=== PATIENT | female | born 1950 | race Caucasian/White ===

== ENCOUNTER 2017-10-19 11:57 | Day surgery (SDC) | payer MEDICARE, SELFPAY ==
[2017-10-14 14:34] VITALS: BMI 20.3
[2017-10-19] VITALS (25 sets, daily range): BP systolic 96–166; BP diastolic 40–90; PULSE 67–110; RESP 12–21; TEMP 36.7–37.4; O2SAT 90–98
--- NOTE | 2017-10-19 14:52 | HMH.PROC ---
[facility] Procedure Note Procedure Note:: Colonoscopy Procedure Report: Colonoscopy with submucosal injection, snare cautery, cold snare polypectomy, APC ablation and epinephrine injection/Endo Clip placement Endoscopist: Dalton Velasquez II, MD Referring physician: Tanika CANTOR Date of Procedure: October 19, 2017 Equipment: Olympus 180 variable stiffness pediatric colonoscope Sedation: Fentanyl 200 mg IV/ Versed 13 mg IV Indication: Mrs. Carbone is a 67-year-old female who is here for follow-up screening/surveillance colonoscopy. She had a colonoscopy 13 or 14 years ago at which time colon polyps were removed. She has had several bouts of diverticulitis over the last 5-10 years. She does note some occasional spotting of blood on the tissue from hemorrhoids. She reports no abdominal pain, weight loss, change in her bowel habits or family history of colon cancer. Procedure: Prior to the procedure, a history and physical exam was performed, and patient's medications and allergies were reviewed. The risks, benefits and alternatives of the sedation and procedure were discussed with the patient. All questions were answered and informed consent was obtained. The patient was brought to the procedure room. Patient identification and proposed procedure were verified by the physician and the nurse. The patient was placed in a left lateral decubitus position and the scope was passed under direct vision. Throughout the procedure, the patient's blood pressure, pulse, and oxygen saturations were monitored continuously. The colonoscopy was accomplished without difficulty. The patient tolerated the procedure well. Findings: On digital rectal examination there was normal rectal tone. There were no external hemorrhoids. The colonoscope was introduced through the anal canal to the rectum and advanced to the cecum. The ileocecal valve and appendiceal orifice were identified. The scope was advanced a short distance into the ileum which appeared grossly normal. The scope was then withdrawn into the colon. There were 3 polyps in the cecum that were 5-8 mm removed via cold snare polypectomy. There was one additional polyp that was 22 mm in the proximal ascending colon that was raised using hetastarch with submucosal injection. After injection, this removed via snare cautery. A larger 28 mm polyp in the mid ascending colon was also raised using submucosal hetastarch and removed via snare cautery. The APC argon was utilized to cauterize the edges and base of the polyp. There was some heme identified on the second polyp and submucosal epinephrine was used to gain hemostasis and then 2 endoclips were utilized. There were 3 additional polyps in the transverse colon. There were extensive diverticulosis in the descending and sigmoid colon. There was a much larger 35 mm pedunculated polyp in the sigmoid colon at 25 cm at an angulated turn. This was also removed in piecemeal resection using snare cautery. Upon retroflexion within the rectum there were grade 1 internal hemorrhoids. Impression: 1. 2 laterally spreading granular ascending colon polyps (22 and 28 mm) 2. 1 large sigmoid pedunculated 35 mm polyp 3. 7 additional diminutive adenomatous polyps 4. Extensive left-sided diverticulosis 5. Grade 1 internal hemorrhoids Plan: I will follow-up the polyp histology and recommend repeat surveillance colonoscopy in 6-12 months based on the endoscopic findings. 3 of these polyps were advanced adenomatous polyps.
--- NOTE | 2017-10-19 14:59 | P.PCN_ITS ---
[facility] Procedure Note Procedure Note:: Colonoscopy Procedure Report: Colonoscopy with submucosal injection, snare cautery, cold snare polypectomy, APC ablation and epinephrine injection/Endo Clip placement Endoscopist: Dalton Velasquez II, MD Referring physician: Tanika CANTOR Date of Procedure: October 19, 2017 Equipment: Olympus 180 variable stiffness pediatric colonoscope Sedation: Fentanyl 200 mg IV/ Versed 13 mg IV Indication: Mrs. Carbone is a 67-year-old female who is here for follow-up screening/surveillance colonoscopy. She had a colonoscopy 13 or 14 years ago at which time colon polyps were removed. She has had several bouts of diverticulitis over the last 5-10 years. She does note some occasional spotting of blood on the tissue from hemorrhoids. She reports no abdominal pain , weight loss, change in her bowel habits or family history of colon cancer. Procedure: Prior to the procedure, a history and physical exam was performed, and patient' s medications and allergies were reviewed. The risks, benefits and alternatives of the sedation and procedure were discussed with the patient. All questions were answered and informed consent was obtained. The patient was brought to the procedure room. Patient identification and proposed procedure were verified by the physician and the nurse. The patient was placed in a left lateral decubitus position and the scope was passed under direct vision. Throughout the procedure, the patient's blood pressure, pulse, and oxygen saturations were monitored continuously. The colonoscopy was accomplished without difficulty. The patient tolerated the procedure well. Findings: On digital rectal examination there was normal rectal tone. There were no external hemorrhoids. The colonoscope was introduced through the anal canal to the rectum and advanced to the cecum. The ileocecal valve and appendiceal orifice were identified. The scope was advanced a short distance into the ileum which appeared grossly normal. The scope was then withdrawn into the colon. There were 3 polyps in the cecum that were 5-8 mm removed via cold snare polypectomy. There was one additional polyp that was 22 mm in the proximal ascending colon that was raised using hetastarch with submucosal injection. After injection, this removed via snare cautery. A larger 28 mm polyp in the mid ascending colon was also raised using submucosal hetastarch and removed via snare cautery. The APC argon was utilized to cauterize the edges and base of the polyp. There was some heme identified on the second polyp and submucosal epinephrine was used to gain hemostasis and then 2 endoclips were utilized. There were 3 additional polyps in the transverse colon. There were extensive diverticulosis in the descending and sigmoid colon. There was a much larger 35 mm pedunculated polyp in the sigmoid colon at 25 cm at an angulated turn. This was also removed in piecemeal resection using snare cautery. Upon retroflexion within the rectum there were grade 1 internal hemorrhoids. Impression: 1. 2 laterally spreading granular ascending colon polyps (22 and 28 mm) 2. 1 large sigmoid pedunculated 35 mm polyp 3. 7 additional diminutive adenomatous polyps 4. Extensive left-sided diverticulosis 5. Grade 1 internal hemorrhoids Plan: I will follow-up the polyp histology and recommend repeat surveillance colonoscopy in 6-12 months based on the endoscopic findings. 3 of these polyps were advanced adenomatous polyps.
== END 2017-10-19 16:10 | disposition home or self-care (01) ==
LOC: OUTP 11:59
PROVIDERS: Family Provider Family Medicine; PCP Family Medicine; Visit Provider Internal Medicine Gastroenterology
PROC: 0DJD8ZZ Inspection of Lower Intestinal Tract, Via Natural or Artificial Opening Endoscopic (ICD-10-PCS; CPT 45378; principal; 2017-10-19 13:00)
DX: Z12.11 Encounter for screening for malignant neoplasm of colon (principal); K63.5 Polyp of colon; D12.0 Benign neoplasm of cecum; D12.3 Benign neoplasm of transverse colon; K57.30 Diverticulosis of large intestine without perforation or abscess without bleeding; K64.0 First degree hemorrhoids
CPT/HCPCS: 45382; 45384; 88305; 99152; 99153; C2618

== ENCOUNTER → 2017-12-17 12:14 | Outpatient (CLI) | payer MEDICARE, SELFPAY ==
--- NOTE | 2017-12-17 12:19 | XR_ITS ---
XR chest 2V HISTORY: ITS.REASON: PNEUMONIA, COPD ORDERING PHYSICIAN: Tanika Quintero PATIENT AGE: 67 years COMPARISON: 12/27/2014 FINDINGS: The cardiomediastinal silhouette and pulmonary vascularity are within normal limits. COPD with old granulomatous disease. Hyperinflation with hyperlucency of the lung apices. No lobar consolidation or collapse.. Degenerative change thoracic spine with mild kyphosis. IMPRESSION: COPD, no change with no acute finding
== END ==
PROVIDERS: PCP Nurse Practitioner Family; Visit Provider Nurse Practitioner Family
DX: J18.1 Lobar pneumonia, unspecified organism (principal); J44.0 Chronic obstructive pulmonary disease with (acute) lower respiratory infection
CPT/HCPCS: 71046

== ENCOUNTER → 2018-01-11 12:19 | Outpatient (CLI) | payer MEDICARE, SELFPAY ==
[2018-01-11 13:20] LABS: Prothrombin Time 31.7 seconds (9.4-11.8)
[2018-01-11 13:37] LABS: Basophils % 0.4 % (0.1-2.0); Eosinophils # 0.1 K/mm3 (0.0-0.4); Eosinophils % 0.7 % (0.1-12.0); Hematocrit 47.8 % (37.0-47.0); Hemoglobin 15.3 g/dL (12.2-16.2); Lymphocytes # 2.1 K/mm3 (0.7-4.5); Lymphocytes % 27.2 K/mm3 (10-50); Mean Corpuscular Hemoglobin 31.6 pg (27.0-31.2); Mean Corpuscular Volume 98.9 fl (81-99); Mean Platelet Volume 8.9 fl (7.4-10.4); Monocytes # 0.3 K/mm3 (0.1-1.0); Monocytes % 4.1 % (1.7-9.3); Neutrophils # 5.3 K/mm3 (1.8-7.8); Neutrophils % 67.6 % (37.0-80.0); Platelet Count 180 K/mm3 (142-424); Red Blood Count 4.83 M/mm3 (4.20-5.40); Red Cell Distribution Width 13.9 % (11.5-17.5); White Blood Count 7.8 K/mm3 (4.8-10.8)
[2018-01-11 13:46] LABS: Activated Partial Thrombo Time 41.9 seconds (23.6-34.0)
[2018-01-11 15:21] LABS: Alanine Aminotransferase 34 U/L (12-78); Albumin Level 3.7 gm/dL (3.4-5.0); Albumin/Globulin Ratio 1.2 (1.1-1.8); Alkaline Phosphatase 129 U/L (46-116); Anion Gap 12.4 mEq/L (5-15); Aspartate Amino Transferase 27 U/L (15-37); Bilirubin,Total 0.4 mg/dL (0.2-1.0); Blood Urea Nitrogen 22 mg/dL (7-18); Calcium 9.3 mg/dL (8.5-10.1); Carbon Dioxide 29 mmol/L (21.0-32.0); Chloride 104 mmol/L (98-107); Creatinine,Serum 0.77 mg/dL (0.55-1.02); Estimated Glomerular Filt Rate 74 ml/min (>60); GFR (African American) 90 ML/MIN (>60); Globulin 3.2 gm/dl (1.3-3.2); Glucose 81 mg/dL (74-106); Potassium 4.4 mmoL/L (3.5-5.1); Sodium 141 mmol/L (136-145); Total Protein,Serum 6.9 gm/dL (6.4-8.2)
== END ==
PROVIDERS: Visit Provider Nurse Practitioner Family
DX: R31.0 Gross hematuria (principal)
CPT/HCPCS: 36415; 80053; 85025; 85610; 85730

== ENCOUNTER → 2018-01-27 08:48 | Outpatient (CLI) | payer MEDICARE, SELFPAY ==
--- NOTE | 2018-01-27 08:56 | CT_ITS ---
CT chest wo con HISTORY: ITS.REASON: RT SIDED RIB PAIN ORDERING PHYSICIAN: Tanika Quintero PATIENT AGE: 67 years Technique: Axial images obtained. Sagittal and coronal reformatted images are also generated and reviewed. All CT scans at the facility use one or more dose reduction, viz: automated exposure control; ma/kV adjustment per patient size (including targeted exams where dose is matched to indication; i.e. head); or iterative reconstruction technique. CONTRAST: None FINDINGS: No mediastinal or hilar mass or adenopathy is evident. Scattered small nodes are present within the mediastinum. There are coronary artery calcifications. There are severe centrilobular emphysematous changes with hyperinflation. Calcified granuloma is present in the right lower lobe. There is thickening of the major fissure inferior to this granuloma with fibrotic changes noted within the right middle lobe. Mild fibrotic changes are present in the right apex. No lobar consolidation or collapse. There is mild diffuse bronchial thickening. No central obstructing lesion. There are calcified nodes within the mediastinum and right hilum. IMPRESSION: 1. Severe emphysema. 2. Old granulomatous disease with fibrotic changes in the right middle lobe. 3. Coronary artery calcifications suggesting coronary artery disease
== END ==
PROVIDERS: Family Provider Family Medicine; PCP Nurse Practitioner Family; Visit Provider Nurse Practitioner Family
DX: R07.89 Other chest pain (principal)
CPT/HCPCS: 71250

== ENCOUNTER → 2018-02-12 12:11 | Outpatient (CLI) | payer MEDICARE, SELFPAY ==
--- NOTE | 2018-02-12 12:24 | XR_ITS ---
XR chest 2V HISTORY: ITS.REASON: COPD ORDERING PHYSICIAN: Tanika Quintero PATIENT AGE: 67 years COMPARISON: 12/17/2017 FINDINGS: The cardiomediastinal silhouette and pulmonary vascularity are within normal limits. Emphysema/COPD with old granulomatous disease. No lobar consolidation or collapse.. Kyphosis of the thoracic spine No acute bony abnormalities. IMPRESSION: No change with no acute finding, COPD/emphysema
[2018-02-12 13:21] LABS: Basophils % 0.2 % (0.1-2.0); Eosinophils % 0.5 % (0.1-12.0); Hematocrit 49.9 % (37.0-47.0); Lymphocytes # 2.1 K/mm3 (0.7-4.5); Lymphocytes % 26.4 K/mm3 (10-50); Mean Corpuscular HGB Conc 32.1 g/dL (31.8-35.4); Mean Corpuscular Hemoglobin 31.7 pg (27.0-31.2); Mean Corpuscular Volume 98.8 fl (81-99); Mean Platelet Volume 9.3 fl (7.4-10.4); Monocytes # 0.3 K/mm3 (0.1-1.0); Monocytes % 3.2 % (1.7-9.3); Neutrophils # 5.4 K/mm3 (1.8-7.8); Neutrophils % 69.7 % (37.0-80.0); Platelet Count 174 K/mm3 (142-424); Red Blood Count 5.05 M/mm3 (4.20-5.40); Red Cell Distribution Width 13.9 % (11.5-17.5); White Blood Count 7.8 K/mm3 (4.8-10.8)
[2018-02-12 14:59] LABS: Alanine Aminotransferase 28 U/L (12-78); Albumin Level 4.1 gm/dL (3.4-5.0); Albumin/Globulin Ratio 1.2 (1.1-1.8); Alkaline Phosphatase 159 U/L (46-116); Aspartate Amino Transferase 29 U/L (15-37); Bilirubin,Total 0.4 mg/dL (0.2-1.0); Blood Urea Nitrogen 12 mg/dL (7-18); Calcium 9.7 mg/dL (8.5-10.1); Carbon Dioxide 31 mmol/L (21.0-32.0); Chloride 104 mmol/L (98-107); Estimated Glomerular Filt Rate 71 ml/min (>60); GFR (African American) 86 ML/MIN (>60); Globulin 3.3 gm/dl (1.3-3.2); Glucose 106 mg/dL (74-106); Sodium 142 mmol/L (136-145); Total Protein,Serum 7.4 gm/dL (6.4-8.2)
== END ==
PROVIDERS: PCP Nurse Practitioner Family; Visit Provider Nurse Practitioner Family
DX: J44.1 Chronic obstructive pulmonary disease with (acute) exacerbation (principal)
CPT/HCPCS: 36415; 71046; 80053; 85025

== ENCOUNTER → 2018-02-24 09:54 | Outpatient (CLI) | payer MEDICARE, SELFPAY ==
[2018-02-24 16:27] VITALS: PULSE 71; PULSE 77
== END ==
PROVIDERS: Family Provider Family Medicine; PCP Nurse Practitioner Family; Visit Provider Nurse Practitioner Family
DX: R06.02 Shortness of breath (principal); Z72.0 Tobacco use
CPT/HCPCS: 94060; 94640

== ENCOUNTER → 2018-03-11 06:42 | Outpatient (CLI) | payer MEDICARE, SELFPAY ==
--- NOTE | 2018-03-11 06:45 | NM_ITS ---
History and Indications: Shortness of breath, fatigue abnormal EKG. Procedure: Patient received a 0.4 mg of Lexiscan, resting heart rate was 67 bpm resting blood pressure 135/56, with Lexiscan maximum heart rate achieved was 96 bpm, which is less than 85% of the maximum predicted heart rate and a blood pressure was 127/76. With Lexiscan patient complained of shortness of breath and stomach discomfort Electrocardiogram: Resting electrocardiogram showed sinus rhythm, with Lexiscan there is less than 1.[address] segment depression noted from the baseline EKG. The EKG portion of the Lexiscan Myoview is nondiagnostic. Cardiac stress and resting SPECT images: Cardiac stress and rest SPECT images were obtained using technetium 99 Myoview 32.8 mCi at stress 10.6 mCi at rest. Gated SPECT further analysis of segmental wall motion and calculation of the ejection fraction also done. Cardiac stress and rest SPECT images show uniform myocardial activity without any segmental perfusion abnormality, computer derived ejection fraction is percent with no obvious regional wall motion abnormality, right ventricle is normal size. Conclusion: 1. The EKG portion of the Lexiscan Myoview is nondiagnostic. 2. No obvious scintigraphic evidence of reversible ischemia seen, computer derived ejection fraction is 66% with no obvious regional wall motion abnormality, right ventricle is normal size and contractility. 3. Normal Lexiscan Myoview study.
--- NOTE | 2018-03-11 06:45 | CA_ITS ---
PROCEDURE: 2-D M-mode and color Doppler study INDICATIONS FOR THE TEST: Chest pain COPDX Heart Murmur Tobacco SmokingX Palpitations Fatigue Syncope Edema Hypertension Diabetes Mellitus Rheumatic Fever SOBXDOEXXObesity Hyperlipidemia Family History HD Additional History PATIENT INFORMATION HEIGHT: 66 WEIGHT:121 GENDER: Female B/P:104/65 2-D/M-MODE INTERPRETATION: 2-D MEASUREMENTS OBSERVED VALUES IN CMS Right Ventricular Dimension (RVDd) 1.9 Interventricular Septum (Thickness)(IVsd) .7 Left Ventricular Internal Dimensions(LVIDd) 4.4 Left Ventricular Posterior Wall (Thickness)(LVPWd) .7 Aortic Root 3.3 Aortic Cusp Separation 2.1 Left Atrial Dimensions (LAD) 2.5 2D 1. Left atrium is qualitatively mildly enlarged, left ventricle is normal size, there is no concentric left ventricular hypertrophy, visually estimated ejection fraction of 55%, with no obvious regional wall motion abnormality. 2. The right atrium and right ventricle are normal size and contractility. 3. The aortic valve is minimally thickened and fibrosed. 4. The mitral and tricuspid valvular grossly normal. 5. The pulmonic valve is poorly visualized. 6. No significant pericardial effusion noted. DOPPLER INTERROGATION: Doppler interrogation of the aortic, mitral and tricuspid valve reveals presence of mild mitral and tricuspid regurgitation, tricuspid regurgitant jet velocity is insufficient for calculation of the right ventricular systolic pressure, grade 1 diastolic dysfunction seen without tissue Doppler evidence of raised left atrial pressure. CONCLUSION: 1. Mildly enlarged left atrium, normal left ventricular size, visually estimated ejection fraction 55% with no obvious regional wall motion abnormality, grade 1 diastolic dysfunction seen without tissue Doppler evidence of raised left atrial pressure. 2. Mild mitral and tricuspid regurgitation 3. No significant pericardial effusion noted
== END ==
PROVIDERS: Family Provider Family Medicine; PCP Nurse Practitioner Family; Visit Provider Internal Medicine
DX: R06.00 Dyspnea, unspecified (principal); R93.8 Abnormal findings on diagnostic imaging of other specified body structures; R94.31 Abnormal electrocardiogram [ECG] [EKG]; J43.9 Emphysema, unspecified
CPT/HCPCS: 78452; 93017; 93306; A9502; J2785

== ENCOUNTER → 2018-03-23 14:52 | Outpatient (CLI) | payer MEDICARE, SELFPAY ==
--- NOTE | 2018-03-23 14:53 | NVE_ITS ---
Venous Exam Indications: 729.5 Pain in limb. IMPRESSIONS 1. There is no evidence of significant Reflux. 2. No evidence of deep or superficial vein thrombosis involving the left lower extremity Left lower extremity venous duplex evaluation. Doppler flow study including spectral analysis, color and carrillo scale imaging. Location: Vascular laboratory. Patient status: Outpatient. Tables: Venous flow and imaging: + +-------+ + Location Overall Flow properties + +-------+ + Left common femoral Patent Normal phasicity; spontaneous; normal augmentation; compressible + +-------+ + Left saphenofemoral junction Patent Compressible + +-------+ + Left profunda femoral Patent Compressible + +-------+ + Left femoral Patent Normal phasicity; spontaneous; normal augmentation; compressible + +-------+ + Left greater saphenous Patent Normal phasicity; spontaneous; normal augmentation; compressible + +-------+ + Left popliteal Patent Normal phasicity; spontaneous; normal augmentation; compressible + +-------+ + Left posterior tibial Patent Compressible + +-------+ + Left peroneal Patent Compressible + +-------+ + Left gastrocnemius Patent Compressible + +-------+ + Left soleal Patent Compressible + +-------+ + (Report amended ) Electronically signed by: Kj Romano [id number]
== END ==
PROVIDERS: Family Provider Family Medicine; PCP Nurse Practitioner Family; Visit Provider Internal Medicine
DX: I82.492 Acute embolism and thrombosis of other specified deep vein of left lower extremity (principal)
CPT/HCPCS: 93971

== ENCOUNTER → 2019-04-06 13:03 | Outpatient (CLI) | payer MEDICARE, SELFPAY ==
--- NOTE | 2019-04-06 13:12 | XR_ITS ---
XR chest 2V HISTORY: ITS.REASON: COPD,EMPHYSEMA,WEIGHT LOSS ORDERING PHYSICIAN: Tanika Quintero APRN PATIENT AGE: 68 years COMPARISON: 09/14/2018 FINDINGS: Normal heart size. COPD. Calcified granuloma right middle lobe. The lungs are otherwise clear. There is kyphosis of the thoracic spine not significant change. IMPRESSION: COPD, no change with no acute finding
== END ==
PROVIDERS: PCP Nurse Practitioner Family; Visit Provider Nurse Practitioner Family
DX: J43.2 Centrilobular emphysema (principal); R63.4 Abnormal weight loss
CPT/HCPCS: 71046

== ENCOUNTER → 2019-10-25 14:06 | Outpatient (POV) | payer MEDICARE, SELFPAY | PROVIDERS: Visit Provider Dermatology | DX: Z00.00 Encounter for general adult medical examination without abnormal findings (principal) ==

== ENCOUNTER → 2019-11-08 14:07 | Outpatient (POV) | payer MEDICARE, SELFPAY | PROVIDERS: Visit Provider Dermatology | DX: Z00.00 Encounter for general adult medical examination without abnormal findings (principal) ==

== ENCOUNTER → 2020-06-26 14:39 | Outpatient (CLI) | payer MEDICARE, SELFPAY ==
--- NOTE | 2020-06-26 14:43 | US_ITS ---
PROCEDURE: US KIDNEY CLINICAL INDICATION: GROSS HEMATURIA COMPARISON: No exams were available for comparison FINDINGS: Right kidney is 9 x 4 cm. No hydronephrosis or renal mass evident. The left kidney is 9 x 5 cm. No hydronephrosis or renal mass. No cortical thinning evident of either kidney. There is a small left renal cyst at 13 mm. IMPRESSION: Small left renal cyst otherwise negative bilateral renal ultrasound Dictated by: Oswaldo Sylvester MD 06/27/2020 15:48 Oswaldo Sylvester MD in [place] 06/27/2020 15:48
--- NOTE | 2020-06-26 14:43 | US_ITS ---
PROCEDURE: US URINARY BLADDER CLINICAL INDICATION: GROSS HEMATURIA COMPARISON: No exams were available for comparison FINDINGS: Full bladder volume is calculated to be 196 mL. There is a small persistent hyperechoic focus seen along the posterior wall of the bladder on the left. This does not demonstrate posterior acoustical shadowing and could represent small polyp. Bilateral ureteral jets are present. There is a small amount of postvoid residual urine estimated to be 52 mL. IMPRESSION: 1. Possible polyp of the posterior wall the urinary bladder on the left at 6 mm. 2. Mild amount of postvoid residual urine of 52 mL Dictated by: Oswaldo Sylvester MD 06/27/2020 15:50 Oswaldo Sylvester MD in [place] 06/27/2020 15:50
== END ==
PROVIDERS: PCP Nurse Practitioner Family; Visit Provider Nurse Practitioner Family
DX: R31.0 Gross hematuria (principal)
CPT/HCPCS: 76770; 76857

== ENCOUNTER → 2020-07-07 12:22 | Outpatient (CLI) | payer MEDICARE, SELFPAY ==
[2020-07-07 14:48] LABS: Coronavirus 19 IgG Antibody Negative (Negative); Coronavirus 19 IgM Antibody Negative (Negative)
== END ==
PROVIDERS: Visit Provider Urology
DX: Z01.89 Encounter for other specified special examinations (principal); R31.0 Gross hematuria
CPT/HCPCS: 36415; 86328

== ENCOUNTER 2020-07-09 08:03 | Day surgery (SDC) | payer MEDICARE, SELFPAY ==
[2020-07-09 08:20] VITALS: BP 115/70; PULSE 80; RESP 18; TEMP 36.7; O2SAT 94; BMI 15.5
[2020-07-09 09:38] VITALS: BP 120/65; PULSE 74; RESP 16; TEMP 36.7; O2SAT 91
[2020-07-09 09:58] VITALS: BP 120/65; PULSE 74; RESP 16; TEMP 36.7; O2SAT 91
--- NOTE | 2020-07-09 10:22 | HMH.OPNOTE ---
Date of procedure: 07/09/20 Pre-op Diagnosis:: Gross hematuria Post-op Diagnosis:: Normal bladder mucosa, urethral stenosis Procedure performed:: Cystourethroscopy Surgeon:: Juan Judge MD Anesthesia: local Estimated blood loss (mL): 0 Clinical Note:: 69-year-old white female with recent gross hematuria. At the time of her hematuria she was noted to be over anticoagulated on her Coumadin. No further hematuria has been noted since this was corrected. CT scan has shown a polypoid lesion in the posterior bladder wall and she presents for cystoscopy. Operative findings:: Normal bladder mucosa, there is no extrinsic compression in the posterior bladder wall which may have been the source for the polypoid finding on the ultrasound. Was some narrowing of the urethra but the flexible scope was able to pass through with minimal difficulty. Operative note:: Patient taken to the operating room after informed consent was obtained. On the stretcher she was placed into the frog-leg position and she was prepped and draped in the standard surgical fashion and 2% lidocaine placed into the urethra. After 5 minutes the flexible cystoscope was introduced into the urethral meatus. It passed proximally but at the bladder neck there was a little bit of resistance. The scope was able to be passed down through into the bladder with minimal resistance. The bladder was examined in a systematic fashion. There was no evidence of mucosal abnormalities, stones, diverticula or trabeculation. A small defect was noted in the posterior bladder pushing inwards guest services representative of some extrinsic compression but no evidence of any mucosal abnormalities at this point. The ureteral orifices in their normal anatomic position with clear reflux of urine. The bladder neck and urethra showed no evidence of any friable tissue. Scope removed patient tolerated the procedure well and there were no complications. We discussed the normal findings today and she is to return on an as-needed basis. I believe that the source of her previous gross hematuria was over anticoagulation. Condition: stable Disposition: same day Specimens:: None Complications:: None
== END 2020-07-09 09:58 | disposition home or self-care (01) ==
LOC: OUTP 08:05
PROVIDERS: PCP Nurse Practitioner Family; Visit Provider Urology
PROC: (CPT 52000; principal; 2020-07-09 09:00)
DX: N35.92 Unspecified urethral stricture, female (principal); Z79.01 Long term (current) use of anticoagulants; Z79.899 Other long term (current) drug therapy; J44.9 Chronic obstructive pulmonary disease, unspecified; I48.91 Unspecified atrial fibrillation; I82.409 Acute embolism and thrombosis of unspecified deep veins of unspecified lower extremity
CPT/HCPCS: 52000

== ENCOUNTER → 2021-01-15 16:06 | Outpatient (CLI) | payer MEDICARE, SELFPAY ==
--- NOTE | 2021-01-15 16:18 | ECG_ITS ---
APPROVED REPORT Exam: Resting ECG HR:67 bpm ECG Measurements Heart Rate 67 AXES CA 130 P 95 QRSd 82 QRS 87 QT 380 T 71 QTc 401 Conclusion Normal sinus rhythm Normal ECG Electronically signed by : Joseph Hartmann, 01/16/2021 17:35:14
--- NOTE | 2021-01-15 16:40 | XR_ITS ---
PROCEDURE: XR CHEST 2V CLINICAL HISTORY: WEIGHT LOSS COMPARISON: CR CXR CHEST(2 VIEWS-NOT PORTABLE) from 12/27/2014 CR CXR2V XR chest 2V from 12/17/[address] chest wo con from 01/27/2018 CR CXR2V XR chest 2V from 02/12/2018 FINDINGS: The cardiomediastinal silhouette and pulmonary vascularity are within normal limits. COPD with hyperinflation and attenuation of the peripheral pulmonary vessels. There is increased density in both lower lobes which may be due to a combination of overlying breast attenuation and skin fold artifact. Infiltrate could have a similar appearance however would be unusual to have symmetric appearance. Calcified granuloma right middle lobe. No acute bony findings. Mild thoracic kyphosis with degenerative changes. No acute bony abnormalities. IMPRESSION: COPD with diffuse hyperexpansion and hyper lucency of the lungs. Probable skin fold and breast artifact overlying the lower lobes which could obscure underlying pulmonary pathology.. No definite acute finding Dictated by: Oswaldo Sylvester MD 01/15/2021 17:17 Oswaldo Sylvester MD in [facility] 01/15/2021 17:17
[2021-01-15 17:06] LABS: Basophils % 0.4 % (0.1-2.0); Eosinophils # 0.1 K/mm3 (0.0-0.4); Eosinophils % 1.3 % (0.1-12.0); Hematocrit 44.4 % (37.0-47.0); Lymphocytes # 1.8 K/mm3 (0.7-4.5); Lymphocytes % 30.7 % (10-50); Mean Corpuscular HGB Conc 31.5 g/dL (31.8-35.4); Mean Corpuscular Hemoglobin 30.3 pg (27.0-31.2); Mean Corpuscular Volume 96.3 fl (81-99); Mean Platelet Volume 9.7 fl (7.4-10.4); Monocytes # 0.3 K/mm3 (0.1-1.0); Monocytes % 4.5 % (1.7-9.3); Neutrophils # 3.8 K/mm3 (1.8-7.8); Neutrophils % 63.1 % (37.0-80.0); Platelet Count 142 K/mm3 (142-424); Red Blood Count 4.61 M/mm3 (4.20-5.40)
[2021-01-15 17:14] LABS: INR 1.55 (0.9-1.1); Prothrombin Time 17.7 seconds (10.1-12.5)
[2021-01-15 17:49] LABS: Chloride 100 mmol/L (98-107); Sodium 140 mmol/L (136-145)
[2021-01-15 17:50] LABS: Potassium 4.9 mmoL/L (3.5-5.1)
[2021-01-15 17:52] LABS: Alanine Aminotransferase 19 U/L (12-78); Albumin Level 4.5 g/dl (3.5-5.0); Albumin/Globulin Ratio 1.6 (1.1-1.8); Alkaline Phosphatase 140 U/L (38-126); Anion Gap 8.9 mEq/L (5-15); Aspartate Amino Transferase 33 U/L (14-36); Bilirubin,Total 0.6 mg/dl (0.2-1.3); Blood Urea Nitrogen 15 mg/dl (7-17); Calcium 10.1 mg/dl (8.4-10.2); Carbon Dioxide 36 mmol/L (22.0-30.0); Estimated Glomerular Filt Rate 82 ml/min (>60); GFR (African American) 100 ML/MIN (>60); Globulin 2.8 g/dL (1.3-3.2); Glucose 98 mg/dl (74-100); Magnesium 2.4 mg/dl (1.6-2.3); Total Protein,Serum 7.3 g/dl (6.3-8.2)
[2021-01-15 17:58] LABS: C-Reactive Protein 5.2 mg/L (0-4)
[2021-01-15 18:09] LABS: Free T4 (Free Thyroxine) 0.91 ng/dl (0.78-2.19)
[2021-01-15 18:24] LABS: Thyroid Stimulating Hormone 3.75 uIU/mL (0.465-4.68)
== END ==
PROVIDERS: PCP Nurse Practitioner Family; Visit Provider Nurse Practitioner Family
DX: R42 Dizziness and giddiness (principal); R63.4 Abnormal weight loss; Z51.81 Encounter for therapeutic drug level monitoring; Z79.01 Long term (current) use of anticoagulants
CPT/HCPCS: 36415; 71046; 80053; 83735; 84439; 84443; 85025; 85610; 86140; 93005

== ENCOUNTER → 2021-01-29 14:51 | Outpatient (CLI) | payer MEDICARE, SELFPAY ==
--- NOTE | 2021-01-29 14:54 | CT_ITS ---
PROCEDURE: CT HEAD/BRAIN WO CON CLINICAL INDICATION: DIZZINESS,VISION CHANGES COMPARISON: No exams were available for comparison TECHNIQUE: Axial images obtained. All CT scans at the facility use one or more dose reduction, viz: automated exposure control, ma/kV adjustment per patient size (including targeted exams where dose is matched to indication, i.e. head), or iterative reconstruction technique. FINDINGS: No midline shift, mass effect, intracranial hemorrhage, hydrocephalus, or extra-axial fluid collection is evident. There is generalized atrophy with hypoattenuation of the periventricular white matter consistent with microangiopathic changes. The calvarium has an unremarkable appearance. No mastoid effusion. No sinus air-fluid level. IMPRESSION: No acute intracranial finding Dictated by: Oswaldo Sylvester MD 01/29/2021 17:01 Oswaldo Sylvester MD in [facility] 01/29/2021 17:01
== END ==
PROVIDERS: PCP Nurse Practitioner Family; Visit Provider Nurse Practitioner Family
DX: R42 Dizziness and giddiness (principal); H53.9 Unspecified visual disturbance
CPT/HCPCS: 70450

== ENCOUNTER 2021-05-02 12:13 | Inpatient (IN) | payer MEDICARE, SELFPAY ==
[2021-05-02] VITALS (9 sets, daily range): BP systolic 105–127; BP diastolic 51–73; PULSE 67–96; RESP 14–18; TEMP 36.4–37.6; O2SAT 90–98; BMI 14.2; BMI 14.0
--- NOTE | 2021-05-02 12:14 | ECG_ITS ---
APPROVED REPORT Exam: Resting ECG HR:81 bpm ECG Measurements Heart Rate 81 AXES WI 122 P 92 QRSd 86 QRS 77 QT 374 T 80 QTc 434 Conclusion Normal sinus rhythm Normal ECG Electronically signed by : Joseph Hartmann MD 05/03/2021 11:38:50
--- NOTE | 2021-05-02 12:32 | XR_ITS ---
PROCEDURE: XR CHEST PORTABLE CLINICAL HISTORY: sob Shortness of breath, shortness of air COMPARISON: CR CXR2V XR chest 2V from 12/17/[address] chest wo con from 01/27/2018 CR CXR2V XR chest 2V from 02/12/2018 CR XR CHEST 2V from 01/15/2021 FINDINGS: The cardiomediastinal silhouette and pulmonary vascularity are within normal limits. Consolidation is present in the left lower lobe consistent with pneumonia with small effusion. Chronic COPD changes with emphysema. There is some patchy density in the right upper lobe which could be due to an area of infiltrate is well. Calcified nodules present in the right lower lobe. No acute bony abnormalities. IMPRESSION: COPD/emphysema with left lower lobe pneumonia with small effusion and possible patchy ground-glass infiltrate in the right upper lobe Dictated by: Oswaldo Sylvester MD 05/02/2021 13:10 Oswaldo Sylvester MD in [facility] 05/02/2021 13:10
[2021-05-02 12:51] LABS: Basophils % 0.2 % (0.1-2.0); Eosinophils % 0.1 % (0.1-12.0); Hematocrit 40.9 % (37.0-47.0); Hemoglobin 12.7 g/dL (12.2-16.2); Lymphocytes % 9.1 % (10-50); Mean Corpuscular Hemoglobin 30.3 pg (27.0-31.2); Mean Corpuscular Volume 97.4 fl (81-99); Mean Platelet Volume 9.7 fl (7.4-10.4); Monocytes # 0.4 K/mm3 (0.1-1.0); Monocytes % 3.9 % (1.7-9.3); Neutrophils # 9.5 K/mm3 (1.8-7.8); Neutrophils % 86.8 % (37.0-80.0); Platelet Count 141 K/mm3 (142-424); Red Blood Count 4.19 M/mm3 (4.20-5.40); Red Cell Distribution Width 13.4 % (11.5-17.5); White Blood Count 10.9 K/mm3 (4.8-10.8)
[2021-05-02 12:52] LABS: MANUAL DIFFERENTIAL MANUAL DIFFERENTIAL (MANUAL DIFF)
[2021-05-02 12:55] LABS: Chloride 102 mmol/L (98-107); Potassium 4.1 mmoL/L (3.5-5.1); Sodium 140 mmol/L (136-145)
[2021-05-02 12:58] LABS: Alanine Aminotransferase 14 U/L (12-78); Albumin Level 3.9 g/dl (3.5-5.0); Albumin/Globulin Ratio 1.3 (1.1-1.8); Alkaline Phosphatase 128 U/L (38-126); Anion Gap 8.1 mEq/L (5-15); Aspartate Amino Transferase 26 U/L (14-36); Bilirubin,Total 0.8 mg/dl (0.2-1.3); Blood Urea Nitrogen 13 mg/dl (7-17); Calcium 9.4 mg/dl (8.4-10.2); Carbon Dioxide 34 mmol/L (22.0-30.0); Creatinine Clearance Estimated 32 mL/min (50-200); Estimated Glomerular Filt Rate 98 ml/min (>60); GFR (African American) 119 ML/MIN (>60); Glucose 117 mg/dl (74-100); Total Protein,Serum 6.9 g/dl (6.3-8.2)
[2021-05-02 13:00] LABS: Prothrombin Time 40.8 seconds (10.1-12.5)
[2021-05-02 13:02] LABS: INR 3.82 (0.9-1.1)
[2021-05-02 13:03] LABS: Lymphocytes % 16 % (10-50); Monocytes % 4 % (2-9); Neutrophils % 80 % (42-76); Platelet Estimate Normal; RBC Morphology Normal; Total Cells Counted 100
[2021-05-02 13:43] LABS: Coronavirus 19, PCR Not Detected (NotDetected); Influenza A, PCR Not Detected (NotDetected); Influenza B, PCR Not Detected (NotDetected)
[2021-05-02 14:15] LABS: Troponin I < 0.01 ng/ml (0.00-0.034)
--- NOTE | 2021-05-02 14:42 | HMH.EDGENADL ---
ED Disposition Clinical Impression: Acute exacerbation of chronic obstructive airways disease PNA (pneumonia) Qualifiers: Pneumonia type: due to unspecified organism Laterality: left Lung location: lower lobe of lung Qualified Code(s): J18.9 - Pneumonia, unspecified organism Disposition: Admitted As Inpatient Condition on Discharge: Good Referrals: Tanika Quintero APRN [Primary Care Provider] - Time of Disposition: 15:02 - Critical Care Critical Care Time: No Attestation: On 05/02/21, the high probability of a clinically significant, sudden or life threatening deterioration of the following system(s) required my full and direct attention, intervention and personal management. The time I documented below is in addition to time spent performing reported procedures but includes the following listed in this critical care notation. Medical Decision Making - Medical Records Medical records reviewed: Yes: I reviewed the patient's medical records. - Danilo Inquiry Pt receiving controlled substance: No Vital Signs: 05/02/21 12:17 Temperature 99.7 F H Temperature Source Oral Pulse Rate [Right] 82 Respiratory Rate 18 Blood Pressure [Right Arm] 110/62 Blood Pressure Mean [Right Arm] 78 02 Sat by Pulse Oximetry 98 Oxygen Delivery Method Room Air - Lab Data Lab results reviewed: Yes: I reviewed the patient's lab results. Lab Results 05/02/21 12:24: POC Glucose Cancelled 05/02/21 12:35: WBC 10.9 H, RBC 4.19 L, Hgb 12.7, Hct 40.9, MCV 97.4, MCH 30.3, MCHC 31.0 L, RDW 13.4, Plt Count 141 L, MPV 9.7, Neut % (Auto) 86.8 H, Lymph % (Auto) 9.1 L, [place] % (Auto) 3.9, Eos % (Auto) 0.1, Baso % (Auto) 0.2, Neut # (Auto) 9.5 H, Lymph # (Auto) 1.0, [place] # (Auto) 0.4, Eos # (Auto) 0.0, Baso # (Auto) 0.0, Total Counted 100, Neutrophils % (Manual) 80 H, Lymphocytes % (Manual) 16, Monocytes % (Manual) 4, Platelet Estimate Normal, RBC Morphology Normal 05/02/21 12:35: Sodium 140, Potassium 4.1, Chloride 102, Carbon Dioxide 34 H, Anion Gap 8.1, BUN 13, Creatinine 0.60, Estimated Creat Clear 32, Estimated GFR 98, Est GFR ( Amer) 119, Glucose 117 H, Calcium 9.4, Total Bilirubin 0.8, AST 26, ALT 14, Alkaline Phosphatase 128 H, Total Protein 6.9, Albumin 3.9, Globulin 3.0, Albumin/Globulin Ratio 1.3 05/02/21 12:35: PT 40.8 H, INR 3.82 H 05/02/21 12:35: Troponin I < 0.01 05/02/21 13:35: SARS-CoV-2 (PCR) Not detected, Influenza A Untype (PCR) Not detected, Influenza Type B (PCR) Not detected Result diagrams: 05/02/21 12:35 05/02/21 12:35 Orders (Tests/Meds): ED MEDICATIONS Generic Name Dose Route Start Last Admin Trade Name Freq PRN Reason Stop Dose Admin Azithromycin 500 mg/ Sodium 250 mls @ 250 mls/hr 05/02/21 14:00 05/02/21 14:17 Chloride IV 05/16/21 13:59 250 mls/hr Q24H ANN MARIE Administration Protocol Ceftriaxone Sodium 1 gm/ 50 mls @ 100 mls/hr 05/02/21 14:00 Sodium Chloride IV 05/16/21 13:59 Q24H ANN MARIE Protocol ORDERS Category Date Time Status Urinalysis and Microscopic Stat Lab 05/02/21 12:19 Ordered - Radiology Data #1 Image(s): Chest Image Reviewed: Yes I reviewed the patient's radiology results Preliminary Findings: Abnormal L sided PNA - ECG Data Tracing #1 I reviewed this ECG and interpreted as documented below: Normal sinus rhythm, 81 bpm, no ST elevation or depression, no ectopy, normal intervals. Tall T waves noted but patient is very thin. ECG initial impression date: 05/02/21 ECG initial impression time: 12:18 Medical Decision Narrative: 70yo F evaluated for shortness of breath. Patient is in no acute distress on initial evaluation but she was pretreated prior to arrival with Solu-Medrol 125 mg IV and a DuoNeb by EMS. Breath sounds are surprisingly clear other than coarseness throughout as would be anticipated with somebody that has a 20-[id number]-fzuj history. Routine blood work is been initiated along with EKG and chest x-ray. Patient's O2 saturati
--- NOTE | 2021-05-02 15:30 | PC.NURSE ---
Attempted to call report to second floor at this without success. Arnaud ALVA was informed that the nurse was assisting a physician with a procedure at this time and will call back
--- NOTE | 2021-05-02 15:54 | HMH.PHAINT ---
MEDICATION RECONCILIATION COMPLETED UTILIZING LIST FROM MD OFFICE AND EXTERNAL PHARMACY FILL HISTORY.
--- NOTE | 2021-05-02 15:55 | HMH.PHAVTE ---
[facility] Pharmacy VTE Monitoring - Patient Demographics Admission date: 05/02/21 Report Date: 05/02/21 Time: 15:55 Allergies/Adverse Reactions: Patient Allergies NSAIDS (Non-Steroidal Anti-Inflamma Allergy (Mild, Verified 07/05/20 13:56) Rash Height: 1.68 m Weight: 39.916 kg Patient Problems: Current Active Problems Acute exacerbation of chronic obstructive airways disease (Acute) PNA (pneumonia) (Acute) - VTE Risk Labs: VTE Related Lab Results Hgb 12.7 g/dL (12.2-16.2) 05/02/21 12:35 Hct 40.9 % (37.0-47.0) 05/02/21 12:35 Plt Count 141 K/mm3 (142-424) L 05/02/21 12:35 PT 40.8 seconds (10.1-12.5) H 05/02/21 12:35 INR 3.82 (0.9-1.1) H 05/02/21 12:35 BUN 13 mg/dl (7-17) 05/02/21 12:35 Creatinine 0.60 mg/dl (0.52-1.04) 05/02/21 12:35 Estimated Creat Clear 32 mL/min (50-200) 05/02/21 12:35 Clinical Trial Participant: No - Prophylaxis VTE Prophylaxis Ordered?: Yes Types of VTE Prophylaxis: TEDS Knee High Location of Applied Device: Bilateral Lower Extremeties
--- NOTE | 2021-05-02 16:10 | HMH.HP ---
*Admission Date: 05/02/21 *Chief complaint: Shortness of breath *History of present illness: 70-year-old female presented to the emergency department with worsening shortness of breath and cough. Patient been seen in the office on April 29 and diagnosed with pneumonia. Patient contacted EMS due to her level of dyspnea. Patient was hypoxic in transport and was given a DuoNeb and given IV Solu-Medrol. Patient is oxygen dependent COPD. Her baseline supplemental oxygen use is 2 L/min via nasal cannula. In route this was increased to 4 L/min. Upon arrival in the ER patient was still hypoxic despite increase in O2 with O2 sat being 87%. Additional work-up confirmed the presence of left lower lobe pneumonia. Patient reports no known fevers but chills at home. Cough is loose and produces sputum of unknown color [facility] History I have reviewed the patient's past medical history: Yes Medical History: Reports:: Arrhythmia, Atrial Fibrillation, Chronic Obstructive Pulmonary Disease (COPD), Deep Vein Thrombosis, Lung Disease, Kidney Stones, Palpitations Denies:: Cancer, Diabetes Mellitus Type 1, Diabetes Mellitus Type 2, Internal Pacemaker, MRSA, Seizures *Have you ever received a pneumonia vaccine?: No *Have you received a flu vaccine this season?: No Other Medical History: Reports: Arthritis Other Surgeries: Yes: No Previous Surgery, Colonoscopy, Hysterectomy-Partial. No: Pacemaker Amputation: No Fractures: No - *Social History Smoking Status: Current every day smoker Tobacco Type: cigarettes # Packs/Day (cigarettes): 1 #Yrs smoked (if former smoker): 50 Alcohol Intake: never Alcohol Intake Frequency:: other Substance Use Type: denies use *Occupational Status:: retired Housing: house Household Members: spouse *Travel in the last 8 weeks: None Family Hx:: No significant family history Review of Systems - Constitutional Reports anorexia, Reports chills, Reports fever(s), Reports lack of energy, Reports weight loss, Denies body ache(s) - Eyes Denies blind spots, Denies blurry vision - ENT Denies bleeding gums, Denies ear discharge - *Cardiovascular Reports chest pain at rest (Described as pleuritic by the patient), Denies chest pain with activity - *Respiratory Reports change in phlegm color, Reports chest congestion, Reports cough, Reports shortness of breath, Reports shortness of breath with activity, Reports pain on inspiration - *Gastrointestinal Denies belching - *Genitourinary Denies painful urination - *Musculoskeletal Denies joint pain - Integumentary/Breasts Denies hair loss - *Neurologic Denies abnormal walking Meds Home Medications Medication Instructions Recorded Confirmed Type escitalopram oxalate 10 mg tablet 10 mg PO HS 10/08/17 05/02/21 History warfarin 5 mg tablet 5 mg PO HS 10/08/17 05/02/21 History zolpidem 5 mg tablet 10 mg PO HS PRN 10/08/17 05/02/21 History Dicyclomine HCl [Bentyl 10mg 20 mg PO QIDP PRN 10/14/17 05/02/21 History capsule] Tizanidine HCl [Zanaflex] 4 mg PO Q8HP PRN 10/14/17 05/02/21 History budesonide-formoterol HFA 160 2 puff INHALATION BID 02/23/18 05/02/21 History mcg-4.5 mcg/actuation aerosol inhaler Albuterol Sulfate [Albuterol 2 puff PO Q4HP PRN 05/02/21 05/02/21 History Sulfate Hfa] Cyproheptadine HCl 4 mg PO BID 05/02/21 05/02/21 History Fluticasone Propionate [Flonase 1 spr NS DAILY 05/02/21 05/02/21 History 50mcg nasal spray 16gm] Ipratropium/Albuterol Sulfate 3 ml IH Q6H 05/02/21 05/02/21 History [Iprat-Albut 0.5-3(2.5) mg/3 ml] Lansoprazole [Prevacid] 30 mg PO DAILY 05/02/21 05/02/21 History hydrOXYzine HCL [Hydroxyzine HCl] 25 mg PO Q4-6H PRN 05/02/21 05/02/21 History polyethylene glycoL 3350 [Miralax 17 gm PO DAILY 05/02/21 05/02/21 History 17gm Packet] Allergies Allergy/AdvReac Type Severity Reaction Status Date / Time NSAIDS (Non-Steroidal Allergy Mild Rash Verified 07/05/20 13:56 Anti-Inflamma Exam Vital signs an
--- NOTE | 2021-05-02 16:30 | PC.NURSE ---
Report received from Edvin ALVA.
--- NOTE | 2021-05-02 16:45 | PC.NURSE ---
Pt arrived to the floor at this time.
--- NOTE | 2021-05-02 17:57 | PC.NURSE ---
Med rec not complete due to patient not knowing her home meds. Family to bring in home meds later.
[2021-05-03] VITALS (9 sets, daily range): BP systolic 91–105; BP diastolic 54–71; PULSE 70–94; RESP 16–20; TEMP 36.9–37.2; O2SAT 83–92; BMI 15.0
--- NOTE | 2021-05-03 03:08 | PC.NURSE ---
A&OX4. TOLERATING 3LNC WELL. UP INDEPENDENTLY IN ROOM. PT GETS VERY OUT OF BREATH WITH AUDIBLE WHEEZING AND PURSED LIP BREATHING WITH ACTIVITY. PT HAS HAD NO C/O PAIN/NA/VO THUS FAR. RESTING COMFORTABLY IN ROOM. VSS WILL CONTINUE TO MONITOR.
[2021-05-03 05:34] LABS: Basophils % 0.1 % (0.1-2.0); Eosinophils # 0.1 K/mm3 (0.0-0.4); Eosinophils % 0.3 % (0.1-12.0); Hematocrit 35.1 % (37.0-47.0); Hemoglobin 11.6 g/dL (12.2-16.2); Lymphocytes # 1.4 K/mm3 (0.7-4.5); Mean Corpuscular HGB Conc 33.2 g/dL (31.8-35.4); Mean Corpuscular Hemoglobin 31.1 pg (27.0-31.2); Mean Corpuscular Volume 93.9 fl (81-99); Mean Platelet Volume 10.2 fl (7.4-10.4); Monocytes # 0.7 K/mm3 (0.1-1.0); Monocytes % 4.1 % (1.7-9.3); Neutrophils # 14.7 K/mm3 (1.8-7.8); Neutrophils % 87.5 % (37.0-80.0); Platelet Count 125 K/mm3 (142-424); Red Blood Count 3.74 M/mm3 (4.20-5.40); Red Cell Distribution Width 14.1 % (11.5-17.5); White Blood Count 16.8 K/mm3 (4.8-10.8)
[2021-05-03 05:38] LABS: Chloride 102 mmol/L (98-107); Sodium 138 mmol/L (136-145)
[2021-05-03 05:39] LABS: Potassium 4.4 mmoL/L (3.5-5.1)
[2021-05-03 05:41] LABS: Blood Urea Nitrogen 17 mg/dl (7-17); Creatinine Clearance Estimated 34 mL/min (50-200); Estimated Glomerular Filt Rate 98 ml/min (>60); GFR (African American) 119 ML/MIN (>60)
[2021-05-03 05:42] LABS: Anion Gap 8.4 mEq/L (5-15); Calcium 9.1 mg/dl (8.4-10.2); Carbon Dioxide 32 mmol/L (22.0-30.0); Glucose 119 mg/dl (74-100)
[2021-05-03 05:43] LABS: MANUAL DIFFERENTIAL MANUAL DIFFERENTIAL (MANUAL DIFF)
[2021-05-03 06:04] LABS: Lymphocytes % 8 % (10-50); Monocytes % 1 % (2-9); Neutrophils % 91 % (42-76); Platelet Estimate Normal; Total Cells Counted 100
[2021-05-03 06:05] LABS: RBC Morphology Normal
--- NOTE | 2021-05-03 06:44 | PC.NURSE ---
pt has cup at bed side for sputum sample. pt cough is dry and non productive at this time.
--- NOTE | 2021-05-03 07:14 | P.CONPHA_ITS ---
[facility] Pharmacy VTE Monitoring - Patient Demographics Admission date: 05/02/21 Report Date: 05/03/21 Time: 07:14 Allergies/Adverse Reactions: Patient Allergies NSAIDS (Non-Steroidal Anti-Inflamma Allergy (Mild, Verified 07/05/20 13:56) Rash Height: 1.68 m Weight: 42.297 kg Patient Problems: Current Active Problems Acute exacerbation of chronic obstructive airways disease (Acute) PNA (pneumonia) (Acute) - VTE Risk Labs: VTE Related Lab Results Hgb 11.6 g/dL (12.2-16.2) L 05/03/21 05:14 Hct 35.1 % (37.0-47.0) L 05/03/21 05:14 Plt Count 125 K/mm3 (142-424) L 05/03/21 05:14 PT 40.8 seconds (10.1-12.5) H 05/02/21 12:35 INR 3.82 (0.9-1.1) H 05/02/21 12:35 BUN 17 mg/dl (7-17) D 05/03/21 05:14 Creatinine 0.60 mg/dl (0.52-1.04) 05/03/21 05:14 Estimated Creat Clear 34 mL/min (50-200) 05/03/21 05:14 Was VTE Risk Assessment Performed: Yes VTE Score: 3 VTE Risk Level: Low Risk Clinical Trial Participant: No - Prophylaxis VTE Prophylaxis Ordered?: Yes Types of VTE Prophylaxis: TEDS Knee High Location of Applied Device: Bilateral Lower Extremeties
--- NOTE | 2021-05-03 07:29 | HMH.ACPN2 ---
Internal Medicine - PN: Subj *Date: 05/03/21 *Time: 07:29 Interval history: Patient has no new complaints. There were no acute events overnight. Exam Vital signs and Labs for Last 24 Hours: Temp Pulse Resp BP Pulse Ox 98.6 F 72 16 93/54 L 90 L 05/03/21 04:00 05/03/21 06:43 05/03/21 04:00 05/03/21 04:00 05/03/21 06:43 Laboratory Results - last 24 hr 05/02/21 12:24: POC Glucose Cancelled 05/02/21 12:35: WBC 10.9 H, RBC 4.19 L, Hgb 12.7, Hct 40.9, MCV 97.4, MCH 30.3, MCHC 31.0 L, RDW 13.4, Plt Count 141 L, MPV 9.7, Neut % (Auto) 86.8 H, Lymph % (Auto) 9.1 L, [place] % (Auto) 3.9, Eos % (Auto) 0.1, Baso % (Auto) 0.2, Neut # (Auto) 9.5 H, Lymph # (Auto) 1.0, [place] # (Auto) 0.4, Eos # (Auto) 0.0, Baso # (Auto) 0.0, Total Counted 100, Neutrophils % (Manual) 80 H, Lymphocytes % (Manual) 16, Monocytes % (Manual) 4, Platelet Estimate Normal, RBC Morphology Normal 05/02/21 12:35: Sodium 140, Potassium 4.1, Chloride 102, Carbon Dioxide 34 H, Anion Gap 8.1, BUN 13, Creatinine 0.60, Estimated Creat Clear 32, Estimated GFR 98, Est GFR ( Amer) 119, Glucose 117 H, Calcium 9.4, Total Bilirubin 0.8, AST 26, ALT 14, Alkaline Phosphatase 128 H, Total Protein 6.9, Albumin 3.9, Globulin 3.0, Albumin/Globulin Ratio 1.3 05/02/21 12:35: PT 40.8 H, INR 3.82 H 05/02/21 12:35: Troponin I < 0.01 05/02/21 13:35: SARS-CoV-2 (PCR) Not detected, Influenza A Untype (PCR) Not detected, Influenza Type B (PCR) Not detected 05/03/21 05:14: WBC 16.8 H D, RBC 3.74 L, Hgb 11.6 L, Hct 35.1 L, MCV 93.9, MCH 31.1, MCHC 33.2, RDW 14.1, Plt Count 125 L, MPV 10.2, Neut % (Auto) 87.5 H, Lymph % (Auto) 8.0 L, [place] % (Auto) 4.1, Eos % (Auto) 0.3, Baso % (Auto) 0.1, Neut # (Auto) 14.7 H, Lymph # (Auto) 1.4, [place] # (Auto) 0.7, Eos # (Auto) 0.1, Baso # (Auto) 0.0, Total Counted 100, Neutrophils % (Manual) 91 H, Lymphocytes % (Manual) 8 L, Monocytes % (Manual) 1 L, Platelet Estimate Normal, RBC Morphology Normal 05/03/21 05:14: Sodium 138, Potassium 4.4, Chloride 102, Carbon Dioxide 32 H, Anion Gap 8.4, BUN 17 D, Creatinine 0.60, Estimated Creat Clear 34, Estimated GFR 98, Est GFR ( Amer) 119, Glucose 119 H, Calcium 9.1 I & O for Last 24 hours: Intake & Output 04/30/21 05/01/21 05/02/21 05/03/21 11:59 11:59 11:59 11:59 Intake Total 240 / 240 Balance 240 / 240 Weight 93 lb 4 oz Narrative: Patient is resting in bed and appears comfortable with no increased work of breathing. Lung have distant breath sounds with the left sided rhonchi. No wheezing heard this morning. Heart has a regular rate and rhythm. Extremities have no edema Assessment and Plan (1) Acute exacerbation of chronic obstructive airways disease Status: Acute Category: Medical Code(s): J44.1 - Chronic obstructive pulmonary disease with (acute) exacerbation (2) PNA (pneumonia) Status: Acute Qualifiers: Pneumonia type: due to unspecified organism Laterality: left Lung location: lower lobe of lung Qualified Code(s): J18.9 - Pneumonia, unspecified organism Category: Medical Code(s): J18.9 - Pneumonia, unspecified organism - Assessment and plan all Dx Assessment and Plan for all problems:: 1. Continue steroids and antibiotics with aerosols.
[2021-05-03 12:42] LABS: Microscopic, Urine URINE MICROSCOPIC (MICROSCOPIC)
[2021-05-03 13:02] LABS: Appearance,Urine CLEAR (Clear); Bilirubin,Urine Negative (Negative); Blood, Urine TRACE-I (Negative); Color,Urine YELLOW (Yellow); Glucose,Urine (UA) Negative (Negative); Ketones,Urine Negative (Negative); Leukocyte Esterase,Urine Negative (Negative); Nitrate,Urine Negative (Negative); Protein,Urine Negative (Negative)
[2021-05-03 13:08] LABS: RBC,Urine Occasional #/hpf (0-3); Squamous Epithelial Cell,Urine Occasional #/hpf (0-5); WBC,Urine Occasional #/hpf (0-3)
--- NOTE | 2021-05-03 17:44 | PC.NURSE ---
Pt has been pleasant and cooperative this shift. A&O X4. No complaints of pain or SOA. Pt is currently receiving O2 via Venti-mask @ 15 LPM/50% O2 with sats. >90%. Venti-mask was applied this AM after an episode of de-saturation. Lung sounds reveal expiratory rhonchi. No edema noted. Skin is C/D/I. Pt ambulates with stand-by assistance to/from the bathroom and throughout the room. Pt also sat up in the recliner for a few hours today. Urine is clear and yellow. No BM thus far today. Appetite is fair and pt eats about half of all meals. 20 G peripheral IV in the LT forearm is patent and SL. VSS. Call light within reach. Will continue to monitor.
[2021-05-04] VITALS (10 sets, daily range): BP systolic 90–112; BP diastolic 51–65; PULSE 62–80; RESP 15–22; TEMP 36.6–37; O2SAT 85–96; BMI 14.9
--- NOTE | 2021-05-04 04:17 | PC.NURSE ---
[address] on continuous pulse ox due to venti mask usage.
--- NOTE | 2021-05-04 04:18 | PC.NURSE ---
patient o2 sats remained low 90s on 50 % venti mask. at 0100 patient o2 sats dropped to 82%, rn notified and upon assessment patient had taken mask off to eat a snack. placed mask back on, sats returned to 90% with a few minutes. after 15 min patient placed on 5 l nc to evaluate tolerance. o2 sats remained 88-90% on 5 l w/a. when patient went to sleep sats increased to 94% and o2 decreased to 4 l nc. sats have remained 93%. patient has had very strong, rattling non productive cough.
--- NOTE | 2021-05-04 04:34 | PC.NURSE ---
sats continue sustaining 93%on 4 l nc, o2 decreased to 3l nc.
--- NOTE | 2021-05-04 06:28 | PC.NURSE ---
patient continues to sat 90-94% on 3l nc, patient states that's what she ears at home. patient has rested well. coughing decreased from beginning of shift
--- NOTE | 2021-05-04 07:55 | P.PN_ITS ---
Internal Medicine - PN: Subj *Date: 05/04/21 *Time: 07:55 Interval history: Patient had to be transition to a Ventimask yesterday during the day but when she was out of bed and into the chair patient was weaned back to nasal cannula and currently is on 3 L/min with O2 sats between 90 and 94%. She notes improvement in her shortness of breath. She has provided a sputum sample. She admits she feels rather weak Exam Vital signs and Labs for Last 24 Hours: Temp Pulse Resp BP Pulse Ox 97.8 F 72 20 94/51 L 96 05/04/21 04:00 05/04/21 07:10 05/04/21 04:00 05/04/21 04:00 05/04/21 07:10 Laboratory Results - last 24 hr 05/03/21 12:30: Urine Color Yellow, Urine Appearance Clear, Urine pH 6.0, Ur Specific [place] 1.020, Urine Protein Negative, Urine Glucose (UA) Negative, Urine Ketones Negative, Urine Blood Trace-i, Urine Nitrate Negative, Urine Bilirubin Negative, Urine Urobilinogen 1.0, Ur Leukocyte Esterase Negative, Urine RBC Occasional, Urine WBC Occasional, Ur Squamous Epith Cells Occasional, Urine Bacteria None I & O for Last 24 hours: Intake & Output 05/01/21 05/02/21 05/03/21 05/04/21 11:59 11:59 11:59 11:59 Intake Total 600 / 600 900 / 900 Balance 600 / 600 900 / 900 Weight 93 lb 4 oz 93 lb Narrative: Patient looks comfortable sitting up in bed. Lung exam: Distant breath sounds, no rhonchi Assessment and Plan (1) Acute exacerbation of chronic obstructive airways disease Status: Acute Category: Medical Code(s): J44.1 - Chronic obstructive pulmonary disease with (acute) exacerbation (2) PNA (pneumonia) Status: Acute Qualifiers: Pneumonia type: due to unspecified organism Laterality: left Lung location: lower lobe of lung Qualified Code(s): J18.9 - Pneumonia, unspecified organism Category: Medical Code(s): J18.9 - Pneumonia, unspecified organism - Assessment and plan all Dx Assessment and Plan for all problems:: 1. Continue IV Rocephin and azithromycin 2. Decrease IV Solu-Medrol 3. Increase activity today, likely discharge tomorrow
--- NOTE | 2021-05-04 17:40 | PC.NURSE ---
Pt is alert and oriented x4 and has been pleasant t/o shift. Pt is on 3 L nc with sats in 90s while sitting down. While ambulating to bathroom/chair, sats drop into high 70s/low 80s but stabilize quickly once sat down and pt remains overall asymptomatic. Pt has not voiced any complaints to staff during this shift. Knee high TEDS applied bilaterally this shift. Call light within reach. Will continue to monitor.
--- NOTE | 2021-05-04 18:30 | PC.NURSE ---
Pt c/o SOA. Sats reading in high 70s. Raised O2 to 4 L nc. Sats now in low 90s, pt tolerating well. Will continue to monitor.
[2021-05-05] VITALS: BP 111/63; PULSE 79; RESP 17; TEMP 36.8; O2SAT 90
[2021-05-05 04:00] VITALS: BP 91/53; PULSE 86; RESP 17; TEMP 36.9; O2SAT 91
--- NOTE | 2021-05-05 04:29 | PC.NURSE ---
shift summary patient has remained on 3 l nc this shift with sats low to mid 90s. patient hesitant to ambulate to restroom due to extreme resp discomfort with task. when getting up to bedside commode patient sats drop done to 79% while on o2 and resp rate in the high 30s. breathing pattern significantly labored. patients pre-activity respiratory status returns with 5 minutes. complained of headache midshift, treated successfully with tylenol.
[2021-05-05 05:00] VITALS: BMI 15.0
[2021-05-05 06:47] VITALS: PULSE 71; PULSE 74; O2SAT 91
[2021-05-05 07:00] LABS: Basophils % 0.1 % (0.1-2.0); Eosinophils % 0.1 % (0.1-12.0); Hematocrit 33.3 % (37.0-47.0); Hemoglobin 11.1 g/dL (12.2-16.2); Lymphocytes # 1.5 K/mm3 (0.7-4.5); Lymphocytes % 14.8 % (10-50); Mean Corpuscular HGB Conc 33.4 g/dL (31.8-35.4); Mean Corpuscular Hemoglobin 31.5 pg (27.0-31.2); Mean Corpuscular Volume 94.3 fl (81-99); Monocytes # 0.7 K/mm3 (0.1-1.0); Monocytes % 7.3 % (1.7-9.3); Neutrophils # 7.8 K/mm3 (1.8-7.8); Neutrophils % 77.7 % (37.0-80.0); Platelet Count 143 K/mm3 (142-424); Red Blood Count 3.53 M/mm3 (4.20-5.40); Red Cell Distribution Width 14.3 % (11.5-17.5)
[2021-05-05 07:52] LABS: Chloride 106 mmol/L (98-107); Potassium 3.8 mmoL/L (3.5-5.1); Sodium 141 mmol/L (136-145)
[2021-05-05 07:55] LABS: Anion Gap 5.8 mEq/L (5-15); Blood Urea Nitrogen 22 mg/dl (7-17); Calcium 8.6 mg/dl (8.4-10.2); Carbon Dioxide 33 mmol/L (22.0-30.0); Creatinine Clearance Estimated 34 mL/min (50-200); Estimated Glomerular Filt Rate 98 ml/min (>60); GFR (African American) 119 ML/MIN (>60); Glucose 84 mg/dl (74-100)
[2021-05-05 08:00] VITALS: BP 97/53; PULSE 67; RESP 18; TEMP 36.7; O2SAT 100
--- NOTE | 2021-05-05 08:04 | HMH.DCSUM ---
General - General Admission date:: 05/02/21 Discharge date: 05/05/21 HPI HPI: 70-year-old female presented to the emergency department with worsening shortness of breath and cough. Patient been seen in the office on April 29 and diagnosed with pneumonia. Patient contacted EMS due to her level of dyspnea. Patient was hypoxic in transport and was given a DuoNeb and given IV Solu-Medrol. Patient is oxygen dependent COPD. Her baseline supplemental oxygen use is 2 L/min via nasal cannula. In route this was increased to 4 L/min. Upon arrival in the ER patient was still hypoxic despite increase in O2 with O2 sat being 87%. Additional work-up confirmed the presence of left lower lobe pneumonia. Patient reports no known fevers but chills at home. Cough is loose and produces sputum of unknown color Hospital Course Hospital Course: Patient was admitted for left lower lobe pneumonia and started on Rocephin and azithromycin. Patient improved gradually with first improvement in chest congestion and then in pleuritic pain and dyspnea. Patient was able to produce a sputum for culture but at the time of dictation culture is still pending. Patient had returned to her baseline oxygen use of 3 L/min via nasal cannula for 48 hours prior to discharge. Patient was also treated for mild COPD exacerbation with IV steroids (Solu-Medrol) and duo nebs. The day prior to discharge she was transitioned to oral prednisone and will continue a course of prednisone as an outpatient. On May 05 patient was discharged home and will follow up in my office this week Objective Vital signs: Temp Pulse Resp BP Pulse Ox 98.5 F 71 17 91/53 L 91 L 05/05/21 04:00 05/05/21 06:47 05/05/21 04:00 05/05/21 04:00 05/05/21 06:47 no acute distress - *Routine Respiratory Exam Present: rales (Faint at left base), distant breath sounds - *Routine Cardiovascular Exam Present: RRR Results Labs on day of discharge: Labs from last 24 hours 05/05/21 05/05/21 06:20 06:20 WBC 10.0 D RBC 3.53 L Hgb 11.1 L Hct 33.3 L MCV 94.3 MCH 31.5 H MCHC 33.4 RDW 14.3 Plt Count 143 MPV 10.0 Neut % (Auto) 77.7 Lymph % (Auto) 14.8 [place] % (Auto) 7.3 Eos % (Auto) 0.1 Baso % (Auto) 0.1 Neut # (Auto) 7.8 Lymph # (Auto) 1.5 [place] # (Auto) 0.7 Eos # (Auto) 0.0 Baso # (Auto) 0.0 Sodium 141 Potassium 3.8 Chloride 106 Carbon Dioxide 33 H Anion Gap 5.8 BUN 22 H D Creatinine 0.60 Estimated Creat Clear 34 Estimated GFR 98 Est GFR ( Amer) 119 Glucose 84 Calcium 8.6 DS: Diagnosis - Discharge Diagnosis (1) PNA (pneumonia) Status: Acute (2) Acute exacerbation of chronic obstructive airways disease Status: Acute Discharge Plan - Patient Discharge Instructions ACTIVITY: Continue current activity DIET: continue same diet Patient Instructions: DI for Chronic Obstructive Pulmonary Disease, DI for Pneumonia -- Adult - Follow up Plan Follow up with: Joseph Cuellar MD [Staff Physician] - 05/08/21 Disposition: Home, Self-Care Condition at discharge:: Improved Home Medications: Home Medications Medication Instructions Recorded Confirmed Type escitalopram oxalate 10 mg tablet 10 mg PO HS 10/08/17 05/02/21 History warfarin 5 mg tablet 5 mg PO HS 10/08/17 05/02/21 History zolpidem 5 mg tablet 10 mg PO HS PRN 10/08/17 05/02/21 History Dicyclomine HCl [Bentyl 10mg 20 mg PO QIDP PRN 10/14/17 05/02/21 History capsule] Tizanidine HCl [Zanaflex] 4 mg PO Q8HP PRN 10/14/17 05/02/21 History budesonide-formoterol HFA 160 2 puff INHALATION BID 02/23/18 05/02/21 History mcg-4.5 mcg/actuation aerosol inhaler Albuterol Sulfate [Albuterol 2 puff PO Q4HP PRN 05/02/21 05/02/21 History Sulfate Hfa] Cyproheptadine HCl 4 mg PO BID 05/02/21 05/02/21 History Fluticasone Propionate [Flonase 1 spr NS DAILY 05/02/21 05/02/21 History 50mcg nasal spray 16gm] Ipra
[2021-05-05 12:00] VITALS: BP 98/55; PULSE 68; RESP 20; TEMP 36.7; O2SAT 99
--- NOTE | 2021-05-06 14:35 | SW/DCPLANNER ---
RECEIVED REFERRAL FOR HOME HEALTH PT SERVICES FOR THIS PATIENT THAT DISCHARGED HOME OVER THE WEEKEND... I MADE CONTACT WITH PATIENT TODAY VIA TELEPHONE AND SHE CHOSE PERSONAL TOUCH OUT OF [employer] THAT SERVICES [facility]...I FAXED REFERRAL AND ASKED FOR SOMEONE TO MAKE CONTACT TO START SERVICES [facility]...MADE PATIENT AWARE TO EXPECT A PHONE CALL...
== END 2021-05-05 12:37 | disposition home or self-care (01) | DRG 194 ==
LOC: ER 15:02 → 2ND 15:15
PROVIDERS: Admitting Provider Family Medicine; Emergency Provider Family Medicine; PCP Nurse Practitioner Family; Visit Provider Family Medicine
DX: J18.9 Pneumonia, unspecified organism (principal); Z68.1 Body mass index [BMI] 19.9 or less, adult; R64 Cachexia; J44.1 Chronic obstructive pulmonary disease with (acute) exacerbation; Z20.822 Contact with and (suspected) exposure to COVID-19; I48.91 Unspecified atrial fibrillation; J44.9 Chronic obstructive pulmonary disease, unspecified; F17.210 Nicotine dependence, cigarettes, uncomplicated; Z79.01 Long term (current) use of anticoagulants; Z99.81 Dependence on supplemental oxygen
CPT/HCPCS: 36415; 71045; 80048; 80053; 81001; 84484; 85007; 85025; 85610; 87070; 87077; 87186; 87205; 93005; 94640; 94760; 94761; 96365; 99203; G0463; J0456; U0003

== ENCOUNTER 2021-09-02 21:12 | Inpatient (IN) | payer MEDICARE, SELFPAY ==
[2021-09-02 21:11] VITALS: BP 121/70; PULSE 79; RESP 22; TEMP 36.9; O2SAT 97; BMI 14.8
--- NOTE | 2021-09-02 21:28 | HMH.EDGENADL ---
ED Disposition Clinical Impression: Right femoral fracture Qualifiers: Encounter type: initial encounter Femur location: intertrochanteric Fracture type: closed Fracture alignment: displaced Qualified Code(s): S72.141A - Displaced intertrochanteric fracture of right femur, initial encounter for closed fracture Disposition: Admitted As Inpatient Condition on Discharge: Fair Time of Disposition: 22:27 - Critical Care Critical Care Time: No Attestation: On 09/02/21, the high probability of a clinically significant, sudden or life threatening deterioration of the following system(s) required my full and direct attention, intervention and personal management. The time I documented below is in addition to time spent performing reported procedures but includes the following listed in this critical care notation. Medical Decision Making - Medical Records Medical records reviewed: Yes: I reviewed the patient's medical records. - Danilo Inquiry Pt receiving controlled substance: No Vital Signs: 09/02/21 21:11 Temperature 98.4 F Temperature Source Oral Pulse Rate [Right] 79 Respiratory Rate 22 Blood Pressure [Right Arm] 121/70 Blood Pressure Mean [Right Arm] 87 Blood Pressure Source [Right Arm] Automatic Cuff 02 Sat by Pulse Oximetry 97 Oxygen Delivery Method Nasal Cannula Oxygen Flow Rate (LPM) 4 - Lab Data Lab Results 09/02/21 21:13: WBC 7.8, RBC 3.87 L, Hgb 12.2, Hct 37.2, MCV 96.3, MCH 31.4 H, MCHC 32.6, RDW 13.9, Plt Count 196, MPV 9.7, Neut % (Auto) 84.7 H, Lymph % (Auto) 10.3, [place] % (Auto) 4.2, Eos % (Auto) 0.4, Baso % (Auto) 0.4, Neut # (Auto) 6.6, Lymph # (Auto) 0.8, [place] # (Auto) 0.3, Eos # (Auto) 0.0, Baso # (Auto) 0.0 09/02/21 21:13: PT 10.5, INR 0.92, APTT 24.4 09/02/21 21:13: Sodium 139, Potassium 4.1, Chloride 101, Carbon Dioxide 37 H, Anion Gap 5.1, BUN 11, Creatinine 0.60, Estimated Creat Clear 33, Estimated GFR 98, Est GFR ( Amer) 119, Glucose 133 H, Calcium 9.0, Total Bilirubin < 0.1 L, AST 27, ALT 16, Alkaline Phosphatase 90, Total Protein 6.4, Albumin 3.9, Globulin 2.5, Albumin/Globulin Ratio 1.6 09/02/21 22:00: SARS-CoV-2 (PCR) Not detected, Influenza A Untype (PCR) Not detected, Influenza Type B (PCR) Not detected Result diagrams: 09/02/21 21:13 09/02/21 21:13 Orders (Tests/Meds): ORDERS Category Date Time Status Covid-19 Nasal PCR ([facility]) Routine Lab 09/02/21 22:00 Stop Req ECG Request by /Alistair Stat Y 09/02/21 21:29 Ordered - Radiology Data #1 Image(s): Hip Image Reviewed: Yes I reviewed the patient's radiology results, Yes I reviewed the patient's radiology image Preliminary Findings: Abnormal IMPRESSION: Intertrochanteric fracture of the right hip with coxa vera deformity. - ECG Data Tracing #1 Sinus rhythm with ventricular rate of 70 bpm. QRS 90, QTc 438. No ST segment elevation. No arrhythmia. Medical Decision Narrative: In summary this is a 71-year-old female presenting to the emergency department with right hip pain after a fall. Patient clinically stable on arrival. Vital signs within normal limits. Oxygen saturation is 95% on her home 4 L. Concern for hip fracture, pelvic fracture, femur fracture, contusion, dislocation. Will obtain x-rays of the right hip and pelvis. Will obtain CBC, CMP, chest x-ray, EKG. Pain is controlled at this time after fentanyl given by EMS. No nausea. Chest x-ray unrevealing. Laboratory results show no significant abnormality of hemoglobin, hematocrit, electrolytes, renal function. X-ray is concerning for a right intertrochanteric femur fracture. Patient neurovascularly intact. Case discussed with orthopedics, Dr. Moe. Patient will be admitted to Dr. Cuellar. N.p.o. at midnight General Adult HPI - General Chief complaint: Fall Stated complaint: Fall, suspected R Hip FX Time Seen by Provider: 09/02/21 21:24 Mode of Arrival: EMS Source of Information: Patient Limitations: No Limitations - History o
--- NOTE | 2021-09-02 21:29 | XR_ITS ---
PROCEDURE INFORMATION: Exam: XR Chest Exam date and time: 09/02/2021 9:29 PM Age: 71 years old Clinical indication: Other: Fall, hip pain; Additional info: Hip FX TECHNIQUE: Imaging protocol: XR of the chest. Views: 1 view. COMPARISON: CR XR CHEST PORTABLE 05/02/2021 12:40 PM FINDINGS: Lungs: Left lower lobe infiltrate and effusion has resolved since comparison. Pleural spaces: Unremarkable. No pleural effusion. No pneumothorax. Heart/Mediastinum: Unremarkable. No cardiomegaly. Bones/joints: Unremarkable. IMPRESSION: 1. Left lower lobe infiltrate and effusion has resolved since comparison. 2. Severe COPD persists.
--- NOTE | 2021-09-02 21:29 | XR_ITS ---
PROCEDURE INFORMATION: Exam: XR Right Hip Exam date and time: 09/02/2021 9:29 PM Age: 71 years old Clinical indication: Hip pain; Right hip; Additional info: Fall, right hip pain TECHNIQUE: Imaging protocol: XR Right hip. Views: 2 or 3 views hip with pelvis when performed. COMPARISON: ABDPELW CT ABD PELVIS W/ CONTRAST 04/03/2017 10:12 AM FINDINGS: Bones/joints: Intertrochanteric fracture of the right hip with coxa vera deformity. Soft tissues: Unremarkable. IMPRESSION: Intertrochanteric fracture of the right hip with coxa vera deformity.
[2021-09-02 21:44] LABS: Basophils % 0.4 % (0.1-2.0); Chloride 101 mmol/L (98-107); Eosinophils % 0.4 % (0.1-12.0); Hematocrit 37.2 % (37.0-47.0); Hemoglobin 12.2 g/dL (12.2-16.2); Lymphocytes # 0.8 K/mm3 (0.7-4.5); Lymphocytes % 10.3 % (10-50); Mean Corpuscular HGB Conc 32.6 g/dL (31.8-35.4); Mean Corpuscular Hemoglobin 31.4 pg (27.0-31.2); Mean Corpuscular Volume 96.3 fl (81-99); Mean Platelet Volume 9.7 fl (7.4-10.4); Monocytes # 0.3 K/mm3 (0.1-1.0); Monocytes % 4.2 % (1.7-9.3); Neutrophils # 6.6 K/mm3 (1.8-7.8); Neutrophils % 84.7 % (37.0-80.0); Platelet Count 196 K/mm3 (142-424); Potassium 4.1 mmoL/L (3.5-5.1); Red Blood Count 3.87 M/mm3 (4.20-5.40); Red Cell Distribution Width 13.9 % (11.5-17.5); Sodium 139 mmol/L (136-145); White Blood Count 7.8 K/mm3 (4.8-10.8)
[2021-09-02 21:47] LABS: Alanine Aminotransferase 16 U/L (12-78); Albumin Level 3.9 g/dl (3.5-5.0); Albumin/Globulin Ratio 1.6 (1.1-1.8); Alkaline Phosphatase 90 U/L (38-126); Anion Gap 5.1 mEq/L (5-15); Aspartate Amino Transferase 27 U/L (14-36); Blood Urea Nitrogen 11 mg/dl (7-17); Carbon Dioxide 37 mmol/L (22.0-30.0); Creatinine Clearance Estimated 33 mL/min (50-200); Estimated Glomerular Filt Rate 98 ml/min (>60); GFR (African American) 119 ML/MIN (>60); Globulin 2.5 g/dL (1.3-3.2); Glucose 133 mg/dl (74-100); Total Protein,Serum 6.4 g/dl (6.3-8.2)
[2021-09-02 21:51] LABS: Bilirubin,Total < 0.1 mg/dl (0.2-1.3)
[2021-09-02 21:52] LABS: Activated Partial Thrombo Time 24.4 seconds (22.8-30.6); INR 0.92 (0.9-1.1); Prothrombin Time 10.5 seconds (10.1-12.5)
--- NOTE | 2021-09-02 21:54 | ECG_ITS ---
APPROVED REPORT Exam: Resting ECG HR:70 bpm ECG Measurements Heart Rate 70 AXES ND 124 P 85 QRSd 90 QRS 77 QT 406 T 79 QTc 438 Conclusion Normal sinus rhythm Normal ECG Electronically signed by : Joseph Hartmann MD 09/03/2021 21:50:38
--- NOTE | 2021-09-02 22:10 | PC.NURSE ---
Called lab, notified that pt will be adx and changing order to rapid covid flu a/b
--- NOTE | 2021-09-02 22:21 | PC.NURSE ---
Dr. Lozoya s/w Dr. Moe
[2021-09-02 22:34] LABS: Coronavirus 19, PCR Not Detected (NotDetected); Influenza A, PCR Not Detected (NotDetected); Influenza B, PCR Not Detected (NotDetected)
[2021-09-03] VITALS (20 sets, daily range): BP systolic 75–131; BP diastolic 35–82; PULSE 68–106; RESP 13–105; TEMP 36.3–43; O2SAT 93–100; BMI 14.8
--- NOTE | 2021-09-03 00:51 | PC.NURSE ---
patient up to floor via stretcher.
--- NOTE | 2021-09-03 03:36 | PC.NURSE ---
Pt a&o x 3, c/o pain to right hip, treated with medication per mar. Ellison cath in place draining clear yellow urine. Expiratory wheezes noted bilaterally, abdomen soft and non-tender. Call hernandez in reach will continue to monitor.
[2021-09-03 06:46] LABS: Basophils % 0.1 % (0.1-2.0); Eosinophils % 0.2 % (0.1-12.0); Hematocrit 34.8 % (37.0-47.0); Hemoglobin 11.2 g/dL (12.2-16.2); Lymphocytes # 1.4 K/mm3 (0.7-4.5); Lymphocytes % 13.1 % (10-50); Mean Corpuscular HGB Conc 32.1 g/dL (31.8-35.4); Mean Corpuscular Hemoglobin 31.7 pg (27.0-31.2); Mean Corpuscular Volume 98.8 fl (81-99); Mean Platelet Volume 9.8 fl (7.4-10.4); Monocytes # 0.6 K/mm3 (0.1-1.0); Monocytes % 5.8 % (1.7-9.3); Neutrophils # 8.5 K/mm3 (1.8-7.8); Neutrophils % 80.7 % (37.0-80.0); Platelet Count 160 K/mm3 (142-424); Red Blood Count 3.52 M/mm3 (4.20-5.40); Red Cell Distribution Width 13.9 % (11.5-17.5); White Blood Count 10.6 K/mm3 (4.8-10.8)
--- NOTE | 2021-09-03 07:09 | HMH.HP ---
*Admission Date: 09/03/21 *Chief complaint: Right hip pain after fall *History of present illness: 71-year-old female with history of severe COPD with chronic respiratory failure on continuous supplemental oxygen at 4 L/min presented to the emergency department after she fell off her couch landing on her right hip. Patient had immediate onset of pain and inability to ambulate. Work-up in the emergency department revealed a right intertrochanteric hip fracture. ER physician spoke with the on-call orthopedist. Patient has been admitted for surgical intervention. At present pain is well controlled. This morning patient denies any recent changes in health. Her dyspnea is stable. She denies chest pain or palpitations. Appetite has been stable. She denies fevers, cough, chills, diarrhea, dysuria, urinary frequency, urgency. [facility] History I have reviewed the patient's past medical history: Yes Medical History: Reports:: Arrhythmia, Cancer (SKIN CANCER ON L WRIST REMOVED), Chronic Obstructive Pulmonary Disease (COPD), Deep Vein Thrombosis, Kidney Stones, Palpitations Denies:: Diabetes Mellitus Type 1, Diabetes Mellitus Type 2, Internal Pacemaker, MRSA, Seizures *Have you ever received a pneumonia vaccine?: Yes *Have you received a flu vaccine this season?: Yes Other Medical History: Reports: Arthritis Other Surgeries: Yes: No Previous Surgery, Colonoscopy, Hysterectomy-Partial, Skin Cancer Excision (L WRIST), Other (CYST REMOVED FROM NECK). No: Pacemaker Amputation: No Fractures: No - *Social History Smoking Status: Current every day smoker Tobacco Type: cigarettes # Packs/Day (cigarettes): 1 #Yrs smoked (if former smoker): 50 Alcohol Intake: never Alcohol Intake Frequency:: other Substance Use Type: denies use *Occupational Status:: retired Housing: house Household Members: spouse *Travel in the last 8 weeks: None Family Hx:: Cancer, Diabetes, Stroke, Mental illness Review of Systems - Review of Systems Review of systems:: pertinent systems reviewed and negative unless documented below - *Neurologic Denies dizziness, Denies headache(s), Denies numbness, Denies tingling Meds Home Medications Medication Instructions Recorded Confirmed Type escitalopram oxalate 10 mg tablet 10 mg PO HS 10/08/17 09/02/21 History zolpidem 5 mg tablet 10 mg PO HS PRN 10/08/17 09/02/21 History Dicyclomine HCl [Bentyl 10mg 20 mg PO QIDP PRN 10/14/17 09/02/21 History capsule] Tizanidine HCl [Zanaflex 4mg 4 mg PO Q8HP PRN 10/14/17 09/02/21 History tab] budesonide-formoterol HFA 160 2 puff INHALATION BID 02/23/18 05/02/21 History mcg-4.5 mcg/actuation aerosol inhaler Albuterol Sulfate [Albuterol 2 puff PO Q4HP PRN 05/02/21 09/02/21 History Sulfate Hfa] Fluticasone Propionate [Flonase 1 spr NS DAILY 05/02/21 09/02/21 History 50mcg nasal spray 16gm] Ipratropium/Albuterol Sulfate 3 ml IH Q6H 05/02/21 09/02/21 History [Iprat-Albut 0.5-3(2.5) mg/3 ml] predniSONE [Prednisone 20mg 20 mg PO DAILY 09/02/21 09/02/21 History Tab] Allergies Allergy/AdvReac Type Severity Reaction Status Date / Time NSAIDS (Non-Steroidal Allergy Mild Rash Verified 07/05/20 13:56 Anti-Inflamma Exam Vital signs and Labs for Last 24 Hours: Temp Pulse Resp BP Pulse Ox 97.9 F 82 17 119/58 L 98 09/03/21 04:00 09/03/21 05:37 09/03/21 04:00 09/03/21 04:00 09/03/21 05:37 Laboratory Results - last 24 hr 09/02/21 21:13: WBC 7.8, RBC 3.87 L, Hgb 12.2, Hct 37.2, MCV 96.3, MCH 31.4 H, MCHC 32.6, RDW 13.9, Plt Count 196, MPV 9.7, Neut % (Auto) 84.7 H, Lymph % (Auto) 10.3, [place] % (Auto) 4.2, Eos % (Auto) 0.4, Baso % (Auto) 0.4, Neut # (Auto) 6.6, Lymph # (Auto) 0.8, [place] # (Auto) 0.3, Eos # (Auto) 0.0, Baso # (Auto) 0.0 09/02/21 21:13: PT 10.5, INR 0.92, APTT 24.4 09/02/21 21:13: Sodium 139, Potassium 4.1, Chloride 101, Carbon Dioxide 37 H, Anion Gap 5.1, BUN 11, Creatinine 0.60, Estimated Creat Clear 33, Estimated GFR 98,
[2021-09-03 07:21] LABS: Anion Gap 2.4 mEq/L (5-15); Blood Urea Nitrogen 12 mg/dl (7-17); Calcium 8.8 mg/dl (8.4-10.2); Carbon Dioxide 39 mmol/L (22.0-30.0); Chloride 102 mmol/L (98-107); Creatinine Clearance Estimated 33 mL/min (50-200); Estimated Glomerular Filt Rate 98 ml/min (>60); GFR (African American) 119 ML/MIN (>60); Glucose 114 mg/dl (74-100); Potassium 4.4 mmoL/L (3.5-5.1); Sodium 139 mmol/L (136-145)
--- NOTE | 2021-09-03 07:25 | P.CONPHA_ITS ---
[facility] VTE Monitoring - Patient Demographics Admission date: 09/03/21 Report Date: 09/03/21 Time: 07:25 Allergies/Adverse Reactions: Patient Allergies NSAIDS (Non-Steroidal Anti-Inflamma Allergy (Mild, Verified 07/05/20 13:56) Rash Height: 1.68 m Weight: 41.73 kg Patient Problems: Current Active Problems Right femoral fracture (Acute) COPD, severe (Acute) Chronic respiratory failure (Acute) - VTE Risk Labs: VTE Related Lab Results Hgb 11.2 g/dL (12.2-16.2) L 09/03/21 05:47 Hct 34.8 % (37.0-47.0) L 09/03/21 05:47 Plt Count 160 K/mm3 (142-424) 09/03/21 05:47 PT 10.5 seconds (10.1-12.5) 09/02/21 21:13 INR 0.92 (0.9-1.1) 09/02/21 21:13 APTT 24.4 seconds (22.8-30.6) 09/02/21 21:13 BUN 12 mg/dl (7-17) 09/03/21 05:47 Creatinine 0.60 mg/dl (0.52-1.04) 09/03/21 05:47 Estimated Creat Clear 33 mL/min (50-200) 09/03/21 05:47 Was VTE Risk Assessment Performed: Yes VTE Score: 4 VTE Risk Level: Low Risk Clinical Trial Participant: No - Prophylaxis VTE Prophylaxis Ordered?: Yes Types of VTE Prophylaxis: TEDS Knee High Location of Applied Device: Refused
--- NOTE | 2021-09-03 09:54 | HMH.PHAINT ---
Verified home medications with Dr. Cuellar office
--- NOTE | 2021-09-03 10:22 | CT_ITS ---
PROCEDURE: CT HIP RT WO CON CLINICAL HISTORY: Right femoral fracture COMPARISON: CT ABDPELW CT ABD PELVIS W/ CONTRAST from 04/03/2017 CR XR CHEST PORTABLE from 09/02/2021 CR XR HIP RT 2-3V W/PELVIS from 09/02/2021 TECHNIQUE: Axial images obtained with sagittal and coronal reformats. All CT scans at the facility use one or more dose reduction, viz: automated exposure control, ma/kV adjustment per patient size (including targeted exams where dose is matched to indication, i.e. head), or iterative reconstruction technique. FINDINGS: There is a comminuted right intertrochanteric fracture with mild impaction of the fracture fragments with medial angulation the distal fracture fragment. There is a prominent butterfly fragment involving the lesser trochanter measuring approximately 6 cm in length and is displaced medially by approximately 1.5 cm. There is diffuse generalized osteopenia. Osteoarthritic changes are present involving the right hip. There is stranding of the fat with increased soft tissue density anterior to the fracture consistent with hemorrhage into the soft tissues. Ellison catheter is present looped in the urinary bladder. IMPRESSION: Comminuted right inter trochanteric hip fracture with displaced lesser trochanter fragment as described above with diffuse generalized osteopenia and hemorrhage within the soft tissues anterior to the fracture Dictated by: Oswaldo Sylvester MD 09/03/2021 11:51 Oswaldo Sylvester MD in [place] 09/03/2021 11:51
--- NOTE | 2021-09-03 12:40 | HMH.ORTHOCON ---
*Admission Date: 09/03/21 <Lauren Mitchell - 09/03/21 12:46> *Reason for consult:: Right hip fracture <Lauren Mitchell - 09/03/21 12:46> *History of present illness: Patient is a 71-year-old female admitted to the inpatient service from the [facility] ER. The patient presented to the emergency department yesterday 09/02/2021 with right hip pain after sustaining a fall at home. She reports that she was lying on her couch, went to reach for her remote control, and fell. She landed on her right side and reports immediate pain in her right hip. She was unable to get up, her assisted her in getting back onto the couch. Today she continues to report right hip pain that is worsened with any attempted movements of the right leg. She denies dizziness, weakness, headache, chest pain, or neck pain. She lives with her and usually walks independently without the use of any cane or walker. She denies loss of consciousness, shortness of breath, chest pain, nausea, vomiting, or distal tingling/numbness. She is a current 1 pack/day smoker. Her past medical history is significant for COPD with chronic respiratory failure; at baseline she wears supplemental oxygen at 4 L/min. She denies any other symptoms or concerns at this time. <Lauren Mitchell - 09/03/21 12:48> [facility] History I have reviewed the patient's past medical history: Yes <Lauren Mitchell - 09/03/21 12:48> Medical History: Reports:: Arrhythmia, Cancer (SKIN CANCER ON L WRIST REMOVED), Chronic Obstructive Pulmonary Disease (COPD), Deep Vein Thrombosis, Lung Disease, Kidney Stones, Palpitations Denies:: Diabetes Mellitus Type 1, Diabetes Mellitus Type 2, Internal Pacemaker, MRSA, Seizures <Lauren Mitchell - 09/03/21 12:48> *Have you ever received a pneumonia vaccine?: Yes <Lauren Mitchell 09/03/21 12:46> *Have you received a flu vaccine this season?: Yes <Lauren Mitchell 09/03/21 12:46> Other Medical History: Reports: Arthritis <Lauren Mitchell - 09/03/21 12:46> Other Surgeries: Yes: No Previous Surgery, Colonoscopy, Hysterectomy-Partial, Skin Cancer Excision (L WRIST), Other (CYST REMOVED FROM NECK). No: Pacemaker <Lauren Mitchell 09/03/21 12:46> Amputation: No <Lauren Mitchell 09/03/21 12:46> Fractures: No <Lauren Mitchell 09/03/21 12:46> - *Social History Smoking Status: Current every day smoker <Lauren Mitchell 09/03/21 12:46> Tobacco Type: cigarettes <Lauren Mitchell 09/03/21 12:46> # Packs/Day (cigarettes): 1 <Lauren Mitchell 09/03/21 12:46> #Yrs smoked (if former smoker): 50 <Lauren Mitchell 09/03/21 12:46> Alcohol Intake: never <Lauren Mitchell 09/03/21 12:46> Alcohol Intake Frequency:: other <Lauren Mitchell 09/03/21 12:46> Substance Use Type: denies use <Lauren Mitchell 09/03/21 12:46> *Occupational Status:: retired <Lauren Mitchell 09/03/21 12:46> Housing: house <Lauren Mitchell 09/03/21 12:46> Household Members: spouse <Lauren Mitchell 09/03/21 12:46> *Travel in the last 8 weeks: None <Lauren Mitchell 09/03/21 12:46> Family Hx:: Cancer, Diabetes, Stroke, Mental illness <Lauern Mitchell 09/03/21 12:46> Review of Systems - Review of Systems Review of systems:: pertinent systems reviewed and negative unless documented below <Lauren Mitchell 09/03/21 12:48> - Constitutional Denies body ache(s), Denies chills, Denies fatigue, Denies fever(s), Denies headache(s), Denies weakness <Lauren Mitchell 09/03/21 12:48> - Eyes Denies blurry vision, Denies change in vision <Lauren Mitchell 09/03/21 12:48> - ENT Denies dizziness, Denies headache(s), Denies neck pain <Lauren Mitchell - 09/03/21 12:48> - *Cardiovascular Denies chest pain, Denies chest pain at rest, Denies chest pain with activity, Denies shortness of breath, Denies shortness of breath with activity, Denies lightheadedness <Lauren Mitchell - 09/03/21 12:48> - *Respiratory Denies chest congestion, Denies cough, De
--- NOTE | 2021-09-03 14:54 | HMH.ANESCL ---
[facility] Anesthesia Checklist - Patient Identification Patient Identification: Arm Band, Verbal (Name & ) - Structural Data Admitted From: Inpatient Planned Operative Procedure/s: Right Hip IM Nail Consent for Planned Operative Procedure(s) Verified: Yes Verified Documents: Surgical Consent - Chart Verification Results Verified: CBC - Additional verifications Anesthesia Reactions: No - Cardiovascular Assessment Heart Sounds: S1 & S2 - Airway Assessment C-Spine Mobility Assessed: Yes TMJ Mobility Assessed: Yes - Neurological Assessment Level of Consciousness: Awake, Alert, Appropriate - Anesthesia Plan Anesthesia Risk discussed: Yes ASA Class: III Anesthesia Type: MAC w/Spinal [facility] History Medical History: Reports:: Arrhythmia, Cancer (SKIN CANCER ON L WRIST REMOVED), Chronic Obstructive Pulmonary Disease (COPD), Deep Vein Thrombosis, Lung Disease, Kidney Stones, Palpitations Denies:: Diabetes Mellitus Type 1, Diabetes Mellitus Type 2, Internal Pacemaker, MRSA, Seizures *Have you ever received a pneumonia vaccine?: Yes *Have you received a flu vaccine this season?: Yes Other Medical History: Reports: Arthritis Anesthesia experience/problems:: none Other Surgeries: Yes: No Previous Surgery, Colonoscopy, Hysterectomy-Partial, Skin Cancer Excision (L WRIST), Other (CYST REMOVED FROM NECK). No: Pacemaker Amputation: No Fractures: No - *Social History Smoking Status: Current every day smoker Tobacco Type: cigarettes # Packs/Day (cigarettes): 1 #Yrs smoked (if former smoker): 50 Alcohol Intake: never Alcohol Intake Frequency:: other Substance Use Type: denies use *Occupational Status:: retired Housing: house Household Members: spouse *Travel in the last 8 weeks: None Family Hx:: Cancer, Diabetes, Stroke, Mental illness
--- NOTE | 2021-09-03 15:00 | XR_ITS ---
PROCEDURE: XR HIP RT 2-3V W/PELVIS CLINICAL INDICATION: C-ARM USED FOR GAMMA NAIL PLACEMENT RIGHT HIP COMPARISON: CR XR HIP RT 2-3V W/PELVIS from 09/02/2021 FINDINGS: Fluoroscopy time: 3.56 minutes. Multiple images submitted with the C-arm demonstrates reduction the intertrochanteric fracture with gamma nail placement with long intramedullary steven along with 2 cerclage wires. There does appear to be good alignment on the submitted images. IMPRESSION: S/p ORIF intertrochanteric fracture with C-arm assistance Dictated by: Oswaldo Sylvester MD 09/04/2021 07:33 Oswaldo Sylvester MD in [place] 09/04/2021 07:33
--- NOTE | 2021-09-03 17:37 | PC.NURSE ---
PT IS OFF THE FLOOR AT THIS TIME FOR SURGERY. PT WAS MEDICATED PER MAR FOR DISCOMFORT BEFORE SURGERY. LUNG SOUNDS CLEAR. ABDOMEN SOFT/NON TENDER. VSS. PALPABLE PULSES. WILL CONTINUE TO MONITOR.
--- NOTE | 2021-09-03 18:59 | SUR.OPER ---
185-updated pt's family at this time
--- NOTE | 2021-09-03 21:20 | P.PN_ITS ---
[facility] Anesthesia Record Part I Intake, IV Amount: 2,300 Estimated blood loss (mL): 300 Urine output (mL): 400 Blood Pressure: 102/52 SaO2: 99 Pulse Rate: 93 Respiratory Rate: 13 Temperature: 97.8 F Patient is:: Drowsy Stable to PACU at:: 21:15
--- NOTE | 2021-09-03 21:44 | PC.NURSE ---
2122-called pt's at this time and updated on pt's status
--- NOTE | 2021-09-03 21:54 | PC.NURSE ---
Patient return from PACU.
--- NOTE | 2021-09-03 21:57 | HMH.OPNOTE ---
Date of procedure: 09/03/21 Pre-op Diagnosis:: Closed, displaced, comminuted intertrochanteric fracture, right femur Post-op Diagnosis:: Same Procedure performed:: 1. Open reduction and cerclage wiring proximal femur, right 2. Cephalo-medullary nailing, right femur Surgeon:: Tuan Moe MD Telephone Clerk Telegraph Office(s):: Lauren Mitchell PA-C VISUAL MERCHANDISING MANAGER:: Other (Munir Avitia) Anesthesia: GETA Estimated blood loss (mL): 300 Clinical Note:: Patient is a 71-year-old female who suffered a closed displaced right intertrochanteric/subtrochanteric fracture following a mechanical fall at home yesterday. Following evaluation in the emergency room where imaging showed a displaced, comminuted and unstable intertrochanteric/subtrochanteric fracture of her right proximal femur, she was admitted for further management. After evaluating the patient, I have discussed the diagnosis and management options in detail including nonsurgical and surgical, with the patient and her . Prior to the injury patient was active and mobile independently. She lives with her and is on long-term home oxygen treatment for severe COPD. After a detailed discussion with the patient a decision was made to fix the fracture internally with a cephalo-medullary nail. I have discussed the procedure, risks and benefits, postoperative recovery and rehabilitation and the expected outcomes. The complications discussed include but are not limited to DVT, PE, infection, bleeding, injury to nerves and blood vessels, screw cut-out/implant failure, loss of fixation, nonunion, malunion/malrotation, osteonecrosis of the femoral head, femoral shaft fracture, painful hardware, heterotopic ossification, stiffness, weakness, incomplete relief of pain, incomplete return of function or motion and the likely need for further surgery in future, and anesthetic/medical complications including heart attack, stroke, transfusion reaction or . The patient and her wished to proceed with the surgical remediation. Consent form was reviewed and signed by me. The limb was appropriately marked and initialed by me. Following appropriate preoperative workup and medical clearance, patient is brought to the operating room for surgery. The surgery is indicated to reduce and stabilize the fracture, relieve pain and improve function. Patient understood the risks, agreed to proceed with surgery, signed the consent form and no guarantees or assurances were given or implied. Operative findings:: Comminuted, displaced and unstable intertrochanteric/subtrochanteric fracture RIGHT proximal femur as noted on the preoperative imaging. The fracture could not be reduced well by closed manipulation and therefore required an open reduction and cerclage wiring. It was then fixed in a stable fashion with a long cephalo-medullary nail. Bone quality is soft/osteoporotic. Operative note:: Following appropriate preoperative workup, patient was brought to the operating room and a general anesthesia was administered by the counterperson. She was then positioned supine on the fracture table and all the bony prominences were appropriately padded. The right foot was secured in the footplate and the footplate was attached to the fracture table. The left leg was placed out of the way in a leg reis. When screened under fluoroscopy, we noticed that the fracture is not appropriately reduced. Therefore, multiple attempts were made to reduce the fracture under fluoroscopic guidance after taking the foot out of the footplate. Given the long spiral, unstable and comminuted fracture configuration, we could not get a satisfactory reduction at this stage. Therefore, we decided to perform an open reduction of the fracture and cerclage wiring to obtain a stable and satisfactory reduction prior to performing the cephalo-medullary nailing. The right hip and right thigh thigh were then prepped and draped in the usual sterile fashion. Administration of prophylactic an
--- NOTE | 2021-09-03 22:03 | PC.NURSE ---
2147-detailed report called to ARTIE Bear 2151-pt transported to 2nd floor room 207 via hospital bed w/cami rails up and left in care of ARTIE Bear with bed locked in lowest position, vss, pt stable
[2021-09-03 23:27] LABS: Hemoglobin 8.3 g/dL (12.2-16.2)
[2021-09-04] VITALS (33 sets, daily range): BP systolic 80–110; BP diastolic 44–64; PULSE 81–101; RESP 16–18; TEMP 36.6–37.9; O2SAT 88–100; BMI 14.5; BMI 14.1
--- NOTE | 2021-09-04 00:12 | PC.NURSE ---
Addendum entered by Caryl Leyva RN 09/04/21 01:10: Pt's pressure will not maintain a systolic >90. Order to transfuse 2 units per . Pt signed blood transfusion consent. Original Note: Pt's initial postop vital signs at 22:00 were 108/61, HR- 105, RR-14, 98.0, O2 93 on 3L NC. 22:30 vitals 75/35, HR- 95, RR- 16, 98.0, 97% on 3L NC, paged at this time. ordered Stat H/H and ordered to nurse educational/development assistant to receive orders for fluids. Paged Munir Santo,HOME CARE NURSE received ordered to give Albumin 50ML x3 over an hour and 500L Bolus of LR. Paged with results of H/H. He stated to order 2 units of blood, but to hold if systolic pressure remains >90 throughout the night. She may need the transfusion in the AM.
--- NOTE | 2021-09-04 04:20 | PC.NURSE ---
Pt's initial postop vital signs at 22:00 were 108/61, HR- 105, RR-14, 98.0, O2 93 on 3L NC. 22:30 vitals 75/35, HR- 95, RR- 16, 98.0, 97% on 3L NC, paged at this time. ordered Stat H/H and stated to page nurse time study technician to receive orders for fluids. Paged Munir Santo CRNA received ordered to give Albumin 50ML x3 over an hour and 500L Bolus of LR. 23:00-Paged with results of H/H. He stated to order 2 units of blood, but to hold blood transfusion if systolic pressure remains > 90 throughout the night. 00:45- pt's pressure was not maintaining, B/P was 86/45. 2 units of blood was ordered per . Started 1 unit of blood at 02:35 per TAR. Pt is tolerating blood transfusion well.
[2021-09-04 06:53] LABS: Basophils % 0.1 % (0.1-2.0); Eosinophils % 0.1 % (0.1-12.0); Hematocrit 25.4 % (37.0-47.0); Hemoglobin 8.1 g/dL (12.2-16.2); Lymphocytes % 10.3 % (10-50); Mean Corpuscular HGB Conc 31.8 g/dL (31.8-35.4); Mean Corpuscular Hemoglobin 31.2 pg (27.0-31.2); Mean Platelet Volume 9.9 fl (7.4-10.4); Monocytes # 0.6 K/mm3 (0.1-1.0); Monocytes % 6.2 % (1.7-9.3); Neutrophils % 83.3 % (37.0-80.0); Platelet Count 77 K/mm3 (142-424); Red Blood Count 2.59 M/mm3 (4.20-5.40); Red Cell Distribution Width 14.5 % (11.5-17.5); White Blood Count 9.7 K/mm3 (4.8-10.8)
--- NOTE | 2021-09-04 07:15 | P.PN_ITS ---
Internal Medicine - PN: Subj *Date: 09/04/21 *Time: 07:15 Interval history: Patient underwent successful open reduction and cerclage wiring of the right proximal femur with cephalomedullary nailing yesterday. Postoperatively patient has been hypotensive and was given 2 units of blood as part of her treatment for hypertension. Hemoglobin did drop to 8.1. Patient is in process of finishing her second unit of blood. Patient denies shortness of breath although has developed a bronchitic cough. Her pain is improved since surgery Exam Vital signs and Labs for Last 24 Hours: Temp Pulse Resp BP Pulse Ox 98.4 F 85 16 92/56 L 98 09/04/21 06:40 09/04/21 06:40 09/04/21 06:40 09/04/21 06:40 09/04/21 06:40 Laboratory Results - last 24 hr 09/03/21 05:47: Sodium 139, Potassium 4.4, Chloride 102, Carbon Dioxide 39 H, Anion Gap 2.4 L, BUN 12, Creatinine 0.60, Estimated Creat Clear 33, Estimated GFR 98, Est GFR ( Amer) 119, Glucose 114 H, Calcium 8.8 09/03/21 12:17: Blood Type A Positive, Antibody Screen Negative, Crossmatch (AHG) See Detail 09/03/21 23:00: Hgb 8.3 L D, Hct 26.0 L 09/04/21 00:00: Blood Type Confirm A Positive 09/04/21 06:24: WBC 9.7, RBC 2.59 L D, Hgb 8.1 L, Hct 25.4 L, MCV 98.0, MCH 31.2, MCHC 31.8, RDW 14.5, Plt Count 77 L D, MPV 9.9, Neut % (Auto) 83.3 H, Lymph % (Auto) 10.3, [place] % (Auto) 6.2, Eos % (Auto) 0.1, Baso % (Auto) 0.1, Neut # (Auto) 8.0 H, Lymph # (Auto) 1.0, [place] # (Auto) 0.6, Eos # (Auto) 0.0, Baso # (Auto) 0.0 I & O for Last 24 hours: Intake & Output 09/01/21 09/02/21 09/03/21 09/04/21 11:59 11:59 11:59 11:59 Intake Total 2550 / 2550 Output Total 0 / 0 800 / 800 Balance 0 / 0 1750 / 1750 Weight 91 lb 15.982 oz 90 lb 3.2 oz Narrative: Patient appears comfortable with no increased work of breathing. Oropharynx is moist. Lungs are distant with right-sided wheezes. Heart has a regular rate and rhythm. Abdomen is soft. Lower extremities have no edema. Right lower extremity is neurovascularly intact. Assessment and Plan (1) Right femoral fracture Status: Acute Qualifiers: Qualified Code(s): S72.141A - Displaced intertrochanteric fracture of right femur, initial encounter for closed fracture Category: Medical Code(s): S72.91XA - Unspecified fracture of right femur, initial encounter for closed fracture (2) COPD, severe Status: Acute Category: Medical Code(s): J44.9 - Chronic obstructive pulmonary disease, unspecified (3) Chronic respiratory failure Status: Acute Category: Medical Code(s): J96.10 - Chronic respiratory failure, unspecified whether with hypoxia or hypercapnia - Assessment and plan all Dx Assessment and Plan for all problems:: 1. Patient will finish her 2 units of packed red blood cells for her acute blood loss anemia and have a 1 hour posttransfusion H&H 2. Continue IV fluids with as needed boluses 3. Patient will be ordered duo nebs for wheezing 4. Portable chest x-ray due to increased cough 5. Continue incentive spirometry use 6. Repeat CBC this afternoon at 2 PM
--- NOTE | 2021-09-04 07:30 | XR_ITS ---
PROCEDURE: XR CHEST PORTABLE CLINICAL HISTORY: cough COMPARISON: CT CHESTWO CT chest wo con from 01/27/2018 CR XR CHEST 2V from 01/15/2021 CR XR CHEST PORTABLE from 05/02/2021 CR XR CHEST PORTABLE from 09/02/2021 FINDINGS: The cardiomediastinal silhouette and pulmonary vascularity are within normal limits. There is bilateral skin fold artifact. Calcified cluster of nodules in the right lower lobe unchanged. No lobar consolidation or collapse. Carotid artery calcifications are noted. COPD changes No acute bony abnormalities. IMPRESSION: No acute findings. Dictated by: Oswaldo Sylvester MD 09/04/2021 07:56 Oswaldo Sylvester MD in [facility] 09/04/2021 07:56
[2021-09-04 09:04] LABS: Alanine Aminotransferase 17 U/L (12-78); Albumin Level 3.1 g/dl (3.5-5.0); Albumin/Globulin Ratio 1.6 (1.1-1.8); Alkaline Phosphatase 44 U/L (38-126); Anion Gap 4.1 mEq/L (5-15); Aspartate Amino Transferase 33 U/L (14-36); Bilirubin,Total 0.1 mg/dl (0.2-1.3); Blood Urea Nitrogen 12 mg/dl (7-17); Calcium 8.4 mg/dl (8.4-10.2); Carbon Dioxide 34 mmol/L (22.0-30.0); Chloride 104 mmol/L (98-107); Creatinine Clearance Estimated 32 mL/min (50-200); Estimated Glomerular Filt Rate 121 ml/min (>60); GFR (African American) 146 ML/MIN (>60); Globulin 1.9 g/dL (1.3-3.2); Glucose 128 mg/dl (74-100); Potassium 4.1 mmoL/L (3.5-5.1); Sodium 138 mmol/L (136-145)
--- NOTE | 2021-09-04 09:09 | HMH.PTEV ---
Physical Therapy Evaluation Rehab PT IP Evaluation Start: 09/03/21 21:42 Freq: ONCE Status: Active Protocol: Document 09/04/21 08:53 LESVIA (Rec: 09/04/21 09:08 LESVIA [id number]) Subjective/History History History This is the initial evaluation for Felicita ortiz. Pt is a 71 y/o female admitted to [facility] for a fractures R hip after a fall at home. Pt has history of severe COPD with chronic respiratory failure on continuous supplemental oxygen . - note done by Dorina Harrison, SPT Subjective Subjective Pt states she lives in a trailer with her who she reports to have good health. Pt states her wil does most of the house work and takes care of her. Pt states she uses supplemental O2 at home but she does not use any AD to ambulate with. Pt states she does have about 6 steps into her trailor. Pt states one other fall at home that occured due to a trip. Rehab PT IP Eval Objective Appearance Patient Behavior Appropriate,Cooperative Patient Orientation Place,Name,Birthday,Year Difficulty following instructions none Speech Pattern Clear,Appropriate,Coherent Ambulation Patient Able to Ambulate Yes Ambulation Observation IP General Gait Pattern Observation Narrow Based Gait,Shuffling Step Ambulation Distance (feet) 5 Ambulation Assistive Device None Ambulation Ability Maximum x 2 (75% assist) Balance Ability to Arise Able, uses arms to help Sitting Balance Steady, safe Standing Balance Unsteady Dynamic Sitting Balance Ability Fair Dynamic Standing Balance Ability Fair Transfers Bed Transfer Ability Maximum x 2 (75% assist) Chair Transfer Ability Moderate x 2 (50% assist) Sit to Stand Bed Transfer Ability Moderate x 2 (50% assist) Rehab PT IP prob,goals,plan Problems Date of Evaluation: 09/04/21 PT IP Problems Bed Mobility,Transfers,Gait, Balance,Self care,Safety Rehab Potential Rehab Potential Fair Equipment Needs Assistive Devices Rolling / Wheeled Walker Plan PT Intervention Plan
[2021-09-04 09:28] LABS: Hematocrit 28.8 % (37.0-47.0)
[2021-09-04 09:29] LABS: Hemoglobin 9.5 g/dL (12.2-16.2)
--- NOTE | 2021-09-04 09:39 | HMH.OTEV ---
OT Inpatient Evaluation Rehab OT IP Evaluation Start: 09/03/21 21:42 Freq: ONCE Status: Complete Protocol: Document 09/04/21 09:32 STONE (Rec: 09/04/21 09:39 [facility] [id number]) Rehab OT IP Assessment Subjective History Pt oriented x 3 on arrival. Pt was admitted on 09/02/21 due to right hip fx. Pt was laying on couch and fell off landing on right hip. The following information was copied per ER documentation: 71-year-old female presenting to the emergency department with right hip pain after a fall. She was lying on her couch around 1 hour prior to arrival, went to reach for the remote control and fell off of the couch. She landed on her right side. Had immediate pain in her right hip and proximal femur. Pain is described as intense and stabbing. She was unable to get up, helped her back onto the couch. She continues to have severe pain in the right hip. Does not radiate to the knee or the back. No numbness, weakness, tingling in her foot. No other injuries obtained in the fall. Specifically, no head injury, chest pain, abdominal pain, pain in her other extremities. She has a history of tobacco use disorder and COPD, chronic hypoxic respiratory failure. Uses 4 L by nasal cannula. Previously was on blood thinning medicine, does not take blood thinners at this time. She was given 100 mcg of fentanyl IV by EMS. Pt has a past medical history of Arrhythmia, Cancer (SKIN CANCER ON L WRIST REMOVED), Chronic Obstructive Pulmonary Disease (COPD), Deep Vein
--- NOTE | 2021-09-04 10:52 | HMH.ORTHPN ---
Subjective Date: 09/04/21 <Lauren Mitchell - 09/04/21 10:53> Time: 08:45 <Lauren Mitchell - 09/04/21 10:53> Principal diagnosis: Right intertrochanteric femur fracture <Lauren Mitchell - 09/04/21 10:53> Interval history: Patient is a 71-year-old female who underwent an uneventful right open reduction, cerclage wiring and cephalomedullary nailing of the right femur yesterday 09/03/2021. Today she is postop day #1. This morning she is sitting up in a chair at the bedside. She reports right hip pain but states that it is well controlled with pain medication. She has been up and ambulated with the assistance of physical therapy and states that this went well. She is eating and drinking well and denies any nausea or vomiting. No history of fevers, chills, rigors, or distal tingling/numbness. She denies chest pain, shortness of breath, or any other symptoms or concerns at this time. <Lauren Mitchell - 09/04/21 10:57> PN: Obj Ex Vital signs: Temp Pulse Resp BP Pulse Ox 98.7 F 94 H 18 88/47 L 95 09/04/21 15:36 09/04/21 15:36 09/04/21 15:36 09/04/21 15:36 09/04/21 15:36 <Tuan Moe - 09/04/21 17:03> Temp Pulse Resp BP Pulse Ox 98.6 F 90 17 81/44 L 97 09/04/21 08:00 09/04/21 08:00 09/04/21 08:00 09/04/21 08:00 09/04/21 08:00 <Lauren Mitchell - 09/04/21 10:53> - Constitutional no acute distress, thin <Lauren Mitchell - 09/04/21 11:03> - Routine Respiratory Exam Absent: accessory muscle use, respiratory distress <Lauren Mitchell - 09/04/21 11:03> Comments: Symmetric chest movement, able to speak in complete sentences <Lauren Mitchell - 09/04/21 11:03> - Routine Cardiovascular Exam Present: RRR. Absent: JVD <PaulaLauren 09/04/21 11:03> Comments: Normal peripheral pulses <PaulaLauren 09/04/21 11:03> - Routine Abdominal Exam Present: soft. Absent: tenderness <Mitchell,Lauren 09/04/21 11:03> - Routine Extremities Exam Present: pulses intact, normal capillary refill. Absent: calf tenderness <Lauren Mitchell 09/04/21 11:03> Comments: Upon examination of the lower extremities: The limb lengths are equal. Dressings over the right hip are clean, dry, and intact. No evidence of drainage or bleeding noted. Attempted movements of the right hip/leg are painful as to be expected at this stage. Thigh and calf are soft and nontender; Homans' sign is negative. No clinical evidence of DVT noted. Posterior tibial pulse 2+, dorsalis pedis pulse 1+; capillary refill is brisk. Sensation to light touch is grossly intact throughout. Patient is actively mobilizing the knee, ankle, and toes. <Lauren Mitchell 09/04/21 11:03> - Routine Skin Exam Present: intact, normal turgor. Absent: erythema, lesions, jaundice <Lauren Mitchell 09/04/21 11:03> - Routine Neurological Exam Present: alert, oriented X3, moving all extremities, normal tone. Absent: sensory deficit, motor deficit <Lauren Mitchell 09/04/21 11:03> - Urinary Catheter Management Ellison Cath placed during this visit: no <Tuan Moe - 09/04/21 17:03> no <Lauren Mitchell 09/04/21 11:44> Urethral indwelling: Yes <Lauren Mitchell 09/04/21 11:03> Progress Note: A&P (1) Right femoral fracture Status: Acute (2) COPD, severe Status: Acute (3) Chronic respiratory failure Status: Acute <Tuan Moe 09/04/21 17:03> (1) Right femoral fracture Status: Acute (2) COPD, severe Status: Acute (3) Chronic respiratory failure Status: Acute <Lauren Mitchell 09/04/21 11:44> Assessment and Plan for All Diagnoses:: Patient had a markedly comminuted proximal femoral fracture requiring open reduction prior to cephalomedullary nailing. Given the situation, the intraoperative blood loss was more than usual for cephalomedullary nailing. There may still be some continued oozing into the soft tissue. Patient dropped h
--- NOTE | 2021-09-04 12:18 | SW/DCPLANNER ---
Addendum entered by Delphine Bhatia 09/06/21 10:50: PATIENT IS DISCHARGING TO [facility].. DR GARVIN DOES NOT GO TO [facility] AND DR SHIPLEY'S PRACTICE WILL BE FOLLOWING [facility] DURING STAY... Original Note: SPOKE WITH PATIENT REGARDING DISCHARGE PLANNING FOR THIS PATIENT.. PATIENT STATED SHE WAS ASLEEP ON THE COUCH AND ROLLED OFF THE COUCH AND HIT THE FLOOR.. SHE STATED IT DID NOT HAVE CARPET AND WAS [place] THAT RESULTED A RIGHT HIP FRACTURE. SHE IS FROM [facility] AND WISHES TO GO TO THE SKILLED FACILITY THERE FOR HER REHAB..I HAVE SENT THE REFERRAL AND WAITING TO HEAR BACK TO WHETHER THEY HAVE A SKILLED BED FOR HER, IF SO SHE MAY DISCHARGE THERE IN THE NEXT DAY OR SO...
[2021-09-04 13:55] LABS: Basophils % 0.2 % (0.1-2.0); Eosinophils % 0.1 % (0.1-12.0); Lymphocytes # 1.4 K/mm3 (0.7-4.5); Lymphocytes % 14.6 % (10-50); Mean Corpuscular HGB Conc 33.3 g/dL (31.8-35.4); Mean Corpuscular Hemoglobin 31.9 pg (27.0-31.2); Mean Corpuscular Volume 95.8 fl (81-99); Mean Platelet Volume 9.5 fl (7.4-10.4); Monocytes # 0.7 K/mm3 (0.1-1.0); Neutrophils # 7.7 K/mm3 (1.8-7.8); Neutrophils % 78.1 % (37.0-80.0); Platelet Count 79 K/mm3 (142-424); Red Blood Count 2.82 M/mm3 (4.20-5.40); Red Cell Distribution Width 14.6 % (11.5-17.5); White Blood Count 9.9 K/mm3 (4.8-10.8)
--- NOTE | 2021-09-04 18:14 | PC.NURSE ---
PT HAS RECEIVED MULTIPLE FLUID BOLUSES THIS SHIFT R/T HER HYPOTENSION. HER BP WILL RECOVER AFTER RECEIVING FLUID BOLUS BUT WILL SLOWLY DROP BACK DOWN WITH SYSTOLIC IN THE 80'S. HER TEMPERATURE WAS NOTED TO BE 100.2 THIS AFTERNOON. SHE WAS GIVEN TYLENOL PER NOV. SHE HAS USED INCENTIVE SPIROMETER THIS SHIFT. WAS ABLE TO PARTICIPATE WITH THERAPY AND SPENT AROUND 5 HOURS UP TO CHAIR. SHE HAS TOLERATED DIET WELL. DID REQUEST PAIN MEDICATION X1 THIS MORNING BUT HAS DENIED PAIN SINCE. DSG REMAINS IN PLACE AND IS C/D/I.
[2021-09-05] VITALS (11 sets, daily range): BP systolic 91–116; BP diastolic 53–63; PULSE 74–100; RESP 14–22; TEMP 36.6–38.2; O2SAT 88–97; BMI 17.8
--- NOTE | 2021-09-05 04:45 | PC.NURSE ---
pt complained of pain and medicated twice with morphine as pt refused po norco that was ordered, pt was educated on norco and agreed to try and given at 0300 with relief of pain, pt up to bsc x1 with assist x2, pt requested use of fracture fallon afterwards, pt with low grade temp through the night and treated with tylenol, dressing CDI to right hip, pt did not bring home meds with her to hospital and states that family will bring in today. b/p remain on the low side but stable through the night
--- NOTE | 2021-09-05 07:20 | HMH.ACPN2 ---
Internal Medicine - PN: Subj *Date: 09/05/21 *Time: 07:20 Interval history: Patient denies pain this morning. She did receive both intravenous and oral pain medications overnight. She had her PT eval yesterday. Patient's blood pressure was low yesterday requiring multiple fluid boluses as well as increase maintenance fluid rate. She remained asymptomatic from any hypotension. This morning she has no new complaints. Her cough is better. Exam Vital signs and Labs for Last 24 Hours: Temp Pulse Resp BP Pulse Ox 99.2 F 83 18 94/57 L 97 09/05/21 04:00 09/05/21 06:31 09/05/21 04:00 09/05/21 04:00 09/05/21 06:31 Laboratory Results - last 24 hr 09/03/21 12:17: Crossmatch (AHG) See Detail 09/04/21 06:24: Sodium 138, Potassium 4.1, Chloride 104, Carbon Dioxide 34 H, Anion Gap 4.1 L, BUN 12, Creatinine 0.50 L, Estimated Creat Clear 32, Estimated GFR 121, Est GFR ( Amer) 146 D, Glucose 128 H, Calcium 8.4, Total Bilirubin 0.1 L, AST 33, ALT 17, Alkaline Phosphatase 44, Total Protein 5.0 L, Albumin 3.1 L D, Globulin 1.9, Albumin/Globulin Ratio 1.6 09/04/21 09:10: Hgb 9.5 L D, Hct 28.8 L 09/04/21 13:45: WBC 9.9, RBC 2.82 L, Hgb 9.0 L, Hct 27.0 L, MCV 95.8, MCH 31.9 H, MCHC 33.3, RDW 14.6, Plt Count 79 L, MPV 9.5, Neut % (Auto) 78.1, Lymph % (Auto) 14.6, [place] % (Auto) 7.0, Eos % (Auto) 0.1, Baso % (Auto) 0.2, Neut # (Auto) 7.7, Lymph # (Auto) 1.4, [place] # (Auto) 0.7, Eos # (Auto) 0.0, Baso # (Auto) 0.0 I & O for Last 24 hours: Intake & Output 09/02/21 09/03/21 09/04/21 09/05/21 11:59 11:59 11:59 11:59 Intake Total 3910 / 3910 2851 / 2851 Output Total 0 / 0 800 / 800 1200 / 1200 Balance 0 / 0 3110 / 3110 1651 / 1651 Weight 91 lb 15.982 oz 90 lb 3.2 oz 111 lb - Constitutional no acute distress - *Routine Respiratory Exam Present: CTA bilaterally - *Routine Cardiovascular Exam Present: RRR - *Routine Abdominal Exam Present: soft, normoactive bowel sounds. Absent: tenderness - *Routine Extremities Exam Present: pulses intact, normal capillary refill. Absent: cyanosis, clubbing, edema, calf tenderness - *Routine Neurological Exam Absent: sensory deficit Assessment and Plan (1) Right femoral fracture Status: Acute Qualifiers: Encounter type: initial encounter Femur location: intertrochanteric Fracture type: closed Fracture alignment: displaced Qualified Code(s): S72.141A - Displaced intertrochanteric fracture of right femur, initial encounter for closed fracture Category: Medical Code(s): S72.91XA - Unspecified fracture of right femur, initial encounter for closed fracture (2) COPD, severe Status: Acute Category: Medical Code(s): J44.9 - Chronic obstructive pulmonary disease, unspecified (3) Chronic respiratory failure Status: Acute Category: Medical Code(s): J96.10 - Chronic respiratory failure, unspecified whether with hypoxia or hypercapnia (4) Anemia due to blood loss, acute Status: Acute Category: Medical Code(s): D62 - Acute posthemorrhagic anemia (5) Postoperative hypotension Status: Acute Category: Medical Code(s): I95.81 - Postprocedural hypotension (6) Thrombocytopenia Status: Acute Category: Medical Code(s): D69.6 - Thrombocytopenia, unspecified - Assessment and plan all Dx Assessment and Plan for all problems:: 1. Patient will need short-term rehab and has been accepted to [facility]. Patient will be discharged when medically stable, which is likely tomorrow 2. Patient's hypotension seems to be improving and fluid rate will be decreased to 75 mL an hour through the day and fluids will be discontinued permanently later this evening if blood pressure remains stable 3. CBC is pending this morning to monitor H&H as well as patient's thrombocytopenia. 4. Patient has a history of DVT. She did receive 1 dose of Lovenox yesterday. Lovenox will be discontinued. Patient will be started on oral Xarelto 10
[2021-09-05 08:33] LABS: Basophils % 0.2 % (0.1-2.0); Eosinophils # 0.1 K/mm3 (0.0-0.4); Eosinophils % 0.7 % (0.1-12.0); Hematocrit 25.5 % (37.0-47.0); Hemoglobin 8.4 g/dL (12.2-16.2); Lymphocytes # 1.2 K/mm3 (0.7-4.5); Lymphocytes % 15.2 % (10-50); Mean Corpuscular HGB Conc 33.1 g/dL (31.8-35.4); Mean Corpuscular Volume 96.9 fl (81-99); Monocytes # 0.4 K/mm3 (0.1-1.0); Monocytes % 5.5 % (1.7-9.3); Neutrophils # 6.3 K/mm3 (1.8-7.8); Neutrophils % 78.4 % (37.0-80.0); Platelet Count 73 K/mm3 (142-424); Red Blood Count 2.63 M/mm3 (4.20-5.40); Red Cell Distribution Width 14.3 % (11.5-17.5)
--- NOTE | 2021-09-05 09:03 | P.PN_ITS ---
[facility] Anesthesia Record Part II Discharge Time: 21:45 Destination: Medical Surgical Department PACU nurse assessment reviewed?: Yes Patient Condition:: Good Anesthesia Complications:: None Swallowing reflex intact?: Yes Cyanosis?: No Blood Pressure: 91/57 Pulse Rate: 100 Temperature: 98 F Mental Status: Alert & Oriented Pain level:: 0 Nausea and/or vomitting:: None Intake, IV Amount: 0
[2021-09-05 09:11] LABS: Anion Gap -0.5 mEq/L (5-15); Blood Urea Nitrogen 10 mg/dl (7-17); Calcium 7.7 mg/dl (8.4-10.2); Carbon Dioxide 32 mmol/L (22.0-30.0); Chloride 110 mmol/L (98-107); Creatinine Clearance Estimated 40 mL/min (50-200); Estimated Glomerular Filt Rate 121 ml/min (>60); GFR (African American) 146 ML/MIN (>60); Glucose 110 mg/dl (74-100); Potassium 3.5 mmoL/L (3.5-5.1); Sodium 138 mmol/L (136-145)
--- NOTE | 2021-09-05 14:04 | HMH.ORTHPN ---
Subjective Date: 09/05/21 Time: 10:45 Principal diagnosis: Right intertrochanteric femur fracture Interval history: Patient is a 71-year-old female who underwent an uneventful right open reduction, cerclage wiring and cephalomedullary nailing of the right femur 09/03/2021. Today she is postop day #2. This morning she is sitting up in a chair at the bedside. She continues to report right hip pain but states that it is well controlled with pain medication and states that it is better than yesterday. Following surgery her H&H dropped significantly and she received 2 units of blood transfusion yesterday. She reports that ambulating is going well with the assistance of PT. She is eating and drinking well and denies any nausea or vomiting. No history of fevers, chills, rigors, or distal tingling/numbness. She denies chest pain, shortness of breath, or any other symptoms or concerns at this time. PN: Obj Ex Vital signs: Temp Pulse Resp BP Pulse Ox 99.3 F 96 H 22 98/53 L 96 09/05/21 12:00 09/05/21 12:00 09/05/21 12:00 09/05/21 12:00 09/05/21 12:00 - Constitutional no acute distress, thin, cooperative - Routine HEENT Exam Head: Present: normocephalic, atraumatic Eye: Present: EOMI, PERRL ENT: Present: mucous membranes moist - Routine Neck Exam Present: supple, full ROM, trachea midline. Absent: JVD - Routine Respiratory Exam Absent: accessory muscle use, respiratory distress Comments: Symmetric chest movement, able to speak in complete sentences - Routine Cardiovascular Exam Present: RRR. Absent: JVD Comments: Normal peripheral pulses - Routine Abdominal Exam Present: soft. Absent: tenderness - Routine Extremities Exam Present: pulses intact, normal capillary refill. Absent: calf tenderness Comments: Upon examination of the lower extremities: The limb lengths are equal. The surgical incisions appear clean, dry, and healthy. No erythema, induration, drainage, or bleeding noted. Attempted movements of the right hip/leg are painful as to be expected at this stage. Thigh and calf are soft and nontender; Homans' sign is negative. No clinical evidence of DVT noted. Posterior tibial pulse 2+, dorsalis pedis pulse 1+; capillary refill is brisk. Sensation to light touch is grossly intact throughout. Patient is actively mobilizing the knee, ankle, and toes. - Routine Skin Exam Present: intact, normal turgor. Absent: cyanosis, erythema, jaundice - Routine Neurological Exam Present: alert, oriented X3, moving all extremities, normal speech. Absent: sensory deficit, motor deficit - Routine Psychiatric Exam Present: normal affect, cooperative - Urinary Catheter Management Ellison Cath placed during this visit: no Urethral indwelling: No Progress Note: A&P (1) Right femoral fracture Status: Acute (2) COPD, severe Status: Acute (3) Chronic respiratory failure Status: Acute (4) Anemia due to blood loss, acute Status: Acute (5) Postoperative hypotension Status: Acute (6) Thrombocytopenia Status: Acute Assessment and Plan for All Diagnoses:: I have discussed the clinical findings and progress with the patient. Overall she reports that she is feeling better today and she is doing well. Her surgical dressings were changed today and the incisions appear clean, dry, and healthy. A sterile bordered gauze dressing was reapplied over her incisions. Following surgery her H&H dropped significantly and yesterday she received 2 units of blood transfusion; she may need further transfusion depending on repeat H&H, vital signs, and clinical presentation. Today she appears stable from an orthopedic standpoint. She may continue to ambulate with weightbearing as tolerated on the right side. Continue PT/OT and DVT prophylaxis as ordered. Continue rest, ice, elevation, and pain medication as needed. All questions were answered and the patient verbalized a good understanding. Case m
--- NOTE | 2021-09-05 18:43 | PC.NURSE ---
PT HAS TOLERATED STANDING AND AMBULATING BETTER THIS SHIFT. SYSTOLIC BP HAS REMAINED >90 AND SHE HAS REMAINED AFEBRILE. SHE DID REQUEST PAIN MEDICATION FOLLOWING TRANSFER AND WAS MEDICATED WITH PRN MORPHINE WITH GOOD EFFECTIVENESS.
[2021-09-05 20:38] LABS: Hematocrit 24.3 % (37.0-47.0); Hemoglobin 8.1 g/dL (12.2-16.2)
[2021-09-06] VITALS: BP 96/55; PULSE 88; RESP 18; TEMP 37.4; O2SAT 94
--- NOTE | 2021-09-06 01:25 | PC.NURSE ---
Dr. Cuellar called at 2200 09/05/2021 to check on H/H lab results ordered, results given as resulted with no new orders received.
[2021-09-06 04:00] VITALS: BP 102/67; PULSE 69; RESP 20; TEMP 37.6; O2SAT 95
--- NOTE | 2021-09-06 05:16 | PC.NURSE ---
pt medicated x1 for pain through the night, low grade temp noted and pt encouraged to use I/S while awake, lungs with expiratory rhonchi, pt requested ambien for sleep and states she takes at home routinely every night, ambien was administered as prescribed and pt slept all night, dsg to right hip CDI, IV fluids discontinued as ordered, SCDS in place, no other issues noted through the night.
[2021-09-06 05:17] VITALS: BMI 18.1
[2021-09-06 06:10] VITALS: PULSE 68; PULSE 88; O2SAT 99
--- NOTE | 2021-09-06 07:12 | HMH.ACPN2 ---
Internal Medicine - PN: Subj *Date: 09/06/21 *Time: 07:12 Interval history: Patient has no complaints this morning. Her pain is better. Her dyspnea is at baseline. H&H declined slightly yesterday evening. Exam Vital signs and Labs for Last 24 Hours: Temp Pulse Resp BP Pulse Ox 99.7 F H 68 20 102/67 L 99 09/06/21 04:00 09/06/21 06:10 09/06/21 04:00 09/06/21 04:00 09/06/21 06:10 Laboratory Results - last 24 hr 09/05/21 08:12: WBC 8.0, RBC 2.63 L, Hgb 8.4 L, Hct 25.5 L, MCV 96.9, MCH 32.0 H, MCHC 33.1, RDW 14.3, Plt Count 73 L, MPV 10.0, Neut % (Auto) 78.4, Lymph % (Auto) 15.2, [place] % (Auto) 5.5, Eos % (Auto) 0.7, Baso % (Auto) 0.2, Neut # (Auto) 6.3, Lymph # (Auto) 1.2, [place] # (Auto) 0.4, Eos # (Auto) 0.1, Baso # (Auto) 0.0 09/05/21 08:12: Sodium 138, Potassium 3.5, Chloride 110 H, Carbon Dioxide 32 H, Anion Gap -0.5 L, BUN 10, Creatinine 0.50 L, Estimated Creat Clear 40, Estimated GFR 121, Est GFR ( Amer) 146, Glucose 110 H, Calcium 7.7 L 09/05/21 20:12: Hgb 8.1 L, Hct 24.3 L I & O for Last 24 hours: Intake & Output 09/03/21 09/04/21 09/05/21 09/06/21 11:59 11:59 11:59 11:59 Intake Total 3910 / 3910 2851 / 2851 240 / 240 Output Total 0 / 0 800 / 800 1200 / 1200 Balance 0 / 0 3110 / 3110 1651 / 1651 240 / 240 Weight 91 lb 15.982 oz 90 lb 3.2 oz 111 lb 112 lb 11.2 oz - Constitutional no acute distress - *Routine Respiratory Exam Present: CTA bilaterally - *Routine Cardiovascular Exam Present: RRR - *Routine Abdominal Exam Present: soft, normoactive bowel sounds. Absent: tenderness Assessment and Plan (1) Right femoral fracture Status: Acute Qualifiers: Encounter type: initial encounter Femur location: intertrochanteric Fracture type: closed Fracture alignment: displaced Qualified Code(s): S72.141A - Displaced intertrochanteric fracture of right femur, initial encounter for closed fracture Category: Medical Code(s): S72.91XA - Unspecified fracture of right femur, initial encounter for closed fracture (2) COPD, severe Status: Chronic Category: Medical Code(s): J44.9 - Chronic obstructive pulmonary disease, unspecified (3) Chronic respiratory failure Status: Chronic Category: Medical Code(s): J96.10 - Chronic respiratory failure, unspecified whether with hypoxia or hypercapnia (4) Anemia due to blood loss, acute Status: Acute Category: Medical Code(s): D62 - Acute posthemorrhagic anemia (5) Postoperative hypotension Status: Resolved Category: Medical Code(s): I95.81 - Postprocedural hypotension (6) Thrombocytopenia Status: Acute Category: Medical Code(s): D69.6 - Thrombocytopenia, unspecified
[2021-09-06 07:20] LABS: Chloride 104 mmol/L (98-107); Potassium 3.7 mmoL/L (3.5-5.1); Sodium 139 mmol/L (136-145)
[2021-09-06 07:23] LABS: Anion Gap 3.7 mEq/L (5-15); Blood Urea Nitrogen 8 mg/dl (7-17); Carbon Dioxide 35 mmol/L (22.0-30.0); Creatinine Clearance Estimated 40 mL/min (50-200); Estimated Glomerular Filt Rate 121 ml/min (>60); GFR (African American) 146 ML/MIN (>60); Glucose 89 mg/dl (74-100)
--- NOTE | 2021-09-06 07:39 | HMH.DCSUM ---
General - General Admission date:: 09/02/21 Discharge date: 09/06/21 HPI HPI: 71-year-old female with history of severe COPD with chronic respiratory failure on continuous supplemental oxygen at 4 L/min presented to the emergency department after she fell off her couch landing on her right hip. Patient had immediate onset of pain and inability to ambulate. Work-up in the emergency department revealed a right intertrochanteric hip fracture. ER physician spoke with the on-call orthopedist. Patient has been admitted for surgical intervention. At present pain is well controlled. This morning patient denies any recent changes in health. Her dyspnea is stable. She denies chest pain or palpitations. Appetite has been stable. She denies fevers, cough, chills, diarrhea, dysuria, urinary frequency, urgency. Hospital Course Hospital Course: Patient was admitted on the evening of the 6. Patient underwent Open reduction and cerclage wiring of the right proximal femur and Cephalo-medullary nailing, right femur. Postoperatively patient had both hypotension and anemia due to blood loss. To a patient's hypotension she was transfused 2 units of packed red blood cells and given boluses of fluid. After 24 hours of intermittent fluid boluses and increased IV maintenance fluid rate patient's blood pressure stabilized. Hemoglobin was greater than 12 preoperatively and postoperatively dropped to as low as 8.1. Once patient's H&H had stabilized she was medically appropriate for discharge. PT was consulted and worked with the patient. Short-term rehabilitation was recommended. Patient was accepted to [facility]. Due to the ongoing pandemic and the patient's associated severe COPD and risk of COVID-19 infection patient benefited from early transfer to [facility] facility to begin rehabilitation. Patient has severe COPD. 1 day postop patient did develop some wheezing and was given duo nebs. Lungs remained clear for the most part the remainder of hospitalization. Incentive spirometry was encouraged. Per patient's postoperative anemia she was started on oral iron replacement once daily Xarelto 10 mg was started on the patient for DVT prophylaxis. This will need to be continued through October 07, 2021 Objective Vital signs: Temp Pulse Resp BP Pulse Ox 99.7 F H 68 20 102/67 L 99 09/06/21 04:00 09/06/21 06:10 09/06/21 04:00 09/06/21 04:00 09/06/21 06:10 no acute distress - *Routine Respiratory Exam Present: CTA bilaterally - *Routine Cardiovascular Exam Present: RRR - *Routine Abdominal Exam Present: soft, normoactive bowel sounds. Absent: tenderness Results Labs on day of discharge: Labs from last 24 hours 09/06/21 09/05/21 09/05/21 06:33 20:12 08:12 WBC RBC Hgb 8.1 L Hct 24.3 L MCV MCH MCHC RDW Plt Count MPV Neut % (Auto) Lymph % (Auto) [place] % (Auto) Eos % (Auto) Baso % (Auto) Neut # (Auto) Lymph # (Auto) [place] # (Auto) Eos # (Auto) Baso # (Auto) Sodium 139 138 Potassium 3.7 3.5 Chloride 104 110 H Carbon Dioxide 35 H 32 H Anion Gap 3.7 L -0.5 L BUN 8 10 Creatinine 0.50 L 0.50 L Estimated Creat Clear 40 40 Estimated GFR 121 121 Est GFR ( Amer) 146 146 Glucose 89 110 H Calcium 8.0 L 7.7 L 09/05/21 08:12 WBC 8.0 RBC 2.63 L Hgb 8.4 L Hct 25.5 L MCV 96.9 MCH 32.0 H MCHC 33.1 RDW 14.3 Plt Count 73 L MPV 10.0 Neut % (Auto) 78.4 Lymph % (Auto) 15.2 [place] % (Auto) 5.5 Eos % (Auto) 0.7 Baso % (Auto) 0.2 Neut # (Auto) 6.3 Lymph # (Auto) 1.2 [place] # (Auto) 0.4 Eos # (Auto) 0.1 Baso # (Auto) 0.0 Sodium Potassium Chloride Carbon Dioxide Anion Gap BUN Creatinine Estimated Creat Clear Estimated GFR Est GFR ( Amer) Glucose Calcium DS: Diagnosis - Discharge Diagnosis (1) Right femor
[2021-09-06 08:00] VITALS: BP 113/64; PULSE 94; RESP 22; TEMP 37.5; O2SAT 92
[2021-09-06 08:00] LABS: Basophils % 0.2 % (0.1-2.0); Eosinophils # 0.1 K/mm3 (0.0-0.4); Eosinophils % 1.7 % (0.1-12.0); Hematocrit 26.6 % (37.0-47.0); Hemoglobin 8.7 g/dL (12.2-16.2); Lymphocytes # 1.5 K/mm3 (0.7-4.5); Lymphocytes % 21.5 % (10-50); Mean Corpuscular HGB Conc 32.8 g/dL (31.8-35.4); Mean Corpuscular Hemoglobin 31.9 pg (27.0-31.2); Mean Corpuscular Volume 97.4 fl (81-99); Mean Platelet Volume 10.2 fl (7.4-10.4); Monocytes # 0.5 K/mm3 (0.1-1.0); Monocytes % 7.3 % (1.7-9.3); Neutrophils # 4.7 K/mm3 (1.8-7.8); Neutrophils % 69.2 % (37.0-80.0); Platelet Count 84 K/mm3 (142-424); Red Blood Count 2.74 M/mm3 (4.20-5.40); Red Cell Distribution Width 13.7 % (11.5-17.5); White Blood Count 6.9 K/mm3 (4.8-10.8)
--- NOTE | 2021-09-06 08:53 | HMH.ORTHPN ---
Subjective Date: 09/06/21 Time: 08:25 Principal diagnosis: Right intertrochanteric femur fracture Interval history: Patient is a 71-year-old female who underwent an uneventful right open reduction, cerclage wiring and cephalomedullary nailing of the right femur 09/03/2021. Today she is postop day #3. This morning she is lying comfortably in bed. She continues to report right hip pain but states that it is well controlled with pain medication. She reports that ambulating is going well with the assistance of PT. She is eating and drinking well and denies any nausea or vomiting. No history of fevers, chills, rigors, or distal tingling/numbness. She denies chest pain, shortness of breath, or any other symptoms or concerns at this time. PN: Obj Ex Vital signs: Temp Pulse Resp BP Pulse Ox 99.5 F 94 H 22 113/64 92 L 09/06/21 08:00 09/06/21 08:00 09/06/21 08:00 09/06/21 08:00 09/06/21 08:00 - Constitutional no acute distress, thin, cooperative - Routine HEENT Exam Head: Present: normocephalic, atraumatic - Routine Neck Exam Present: supple, full ROM, trachea midline. Absent: JVD - Routine Respiratory Exam Absent: accessory muscle use, respiratory distress Comments: symmetric chest movement, able to speak in complete sentences - Routine Cardiovascular Exam Present: RRR. Absent: JVD Comments: normal peripheral pulses - Routine Abdominal Exam Present: soft. Absent: tenderness - Routine Extremities Exam Present: pulses intact, normal capillary refill. Absent: calf tenderness Comments: Upon examination of the lower extremities: The limb lengths are equal. Dressings over the right hip and thigh are clean, dry, and intact. No evidence of bleeding or drainage noted. Thigh and calf are soft and nontender; Alexy's sign is negative. No clinical evidence of DVT noted. Attempted movements of the right leg are painful as to be expected at this stage. Posterior tibial pulse 2+; capillary refill is brisk. Sensation to light touch is grossly intact throughout. Patient is actively mobilizing the foot, ankle, and toes. - Routine Skin Exam Present: intact, normal turgor. Absent: erythema, jaundice - Routine Neurological Exam Present: alert, oriented X3, moving all extremities, normal tone, normal speech. Absent: sensory deficit, motor deficit - Routine Psychiatric Exam Present: normal affect, cooperative - Urinary Catheter Management Ellison Cath placed during this visit: no Urethral indwelling: No Progress Note: A&P (1) Right femoral fracture Status: Acute (2) COPD, severe Status: Chronic (3) Chronic respiratory failure Status: Chronic (4) Anemia due to blood loss, acute Status: Acute (5) Postoperative hypotension Status: Resolved (6) Thrombocytopenia Status: Acute Assessment and Plan for All Diagnoses:: I have discussed the clinical findings and progress with the patient. She is overall doing well from an orthopedic standpoint. Her dressings were changed yesterday and the surgical incisions appear clean, dry, and healthy. No evidence of bleeding or drainage noted. Today her dressings are clean, dry, and intact. She may continue to ambulate with weightbearing as tolerated on the right side. Continue PT/OT and DVT prophylaxis as ordered. Continue rest, ice, elevation, and pain medication as needed. Encouraged the patient to continue to mobilize the knee, foot, and ankle. We will see her in our office for her first postoperative follow up in 2 weeks. All questions were answered and the patient verbalized a good understanding. She is able to be discharged when medically appropriate; patient will likely be discharged to [facility] for short-term rehab. Case management team coordinating discharge planning. Continue medical management as per Dr. Cuellar.
[2021-09-06 10:49] LABS: Coronavirus 19, PCR Not Detected (NotDetected); Influenza A, PCR Not Detected (NotDetected); Influenza B, PCR Not Detected (NotDetected)
== END 2021-09-06 13:50 | DRG 481 ==
LOC: ER 22:27 → 2ND 22:50
PROVIDERS: Orthopaedic Surgery; Admitting Provider Family Medicine; Emergency Provider Emergency Medicine; PCP Family Medicine; Visit Provider Family Medicine
DX: S72.141A Displaced intertrochanteric fracture of right femur, initial encounter for closed fracture (principal); J96.10 Chronic respiratory failure, unspecified whether with hypoxia or hypercapnia; D62 Acute posthemorrhagic anemia; Z20.822 Contact with and (suspected) exposure to COVID-19; Z99.81 Dependence on supplemental oxygen; J44.9 Chronic obstructive pulmonary disease, unspecified; W08.XXXA Fall from other furniture, initial encounter; Z85.828 Personal history of other malignant neoplasm of skin; F17.210 Nicotine dependence, cigarettes, uncomplicated; I48.91 Unspecified atrial fibrillation; Z86.718 Personal history of other venous thrombosis and embolism; M19.90 Unspecified osteoarthritis, unspecified site; M81.0 Age-related osteoporosis without current pathological fracture; I95.81 Postprocedural hypotension; D69.6 Thrombocytopenia, unspecified
CPT/HCPCS: 27244; 36415; 71045; 73502; 73700; 76000; 80048; 80053; 85014; 85018; 85025; 85610; 85730; 86850; 93005; 94640; 94761; 97162; 97166; 97530; 99284; C1713; C1769; C1776; C9803; G0378; J0131; J0330; J2405; J3370; P9016; P9047; U0003; U0005

== ENCOUNTER → 2021-10-03 12:58 | Outpatient (CLI) | payer MEDICARE, SELFPAY ==
--- NOTE | 2021-10-03 13:04 | XR_ITS ---
FINAL REPORT CLINICAL HISTORY: sp RT gamma nail, sx 09/03/21 FINDINGS: RIGHT HIP Three views of the right hip were obtained. An intramedullary steven and compression screw secures an intratrochanteric fracture of the right proximal femur. The lesser trochanter exists as a free fragment. There are mild hypertrophic changes along the right acetabular margin. No soft tissue abnormality is seen. IMPRESSION: Postoperative changes as described. Reviewed, Interpreted and Dictated by Samm Chapin MD Transcribed by Leyla Rasmussen Authenticated by Samm Chapin MD on 10/03/2021 03:54:09 PM [facility]
== END ==
PROVIDERS: PCP Family Medicine; Visit Provider Orthopaedic Surgery
DX: Z09 Encounter for follow-up examination after completed treatment for conditions other than malignant neoplasm (principal); M25.551 Pain in right hip
CPT/HCPCS: 73502

== ENCOUNTER → 2021-11-19 13:29 | Outpatient (CLI) | payer MEDICARE, MEDICAID, SELFPAY ==
--- NOTE | 2021-11-19 13:38 | XR_ITS ---
FINAL REPORT CLINICAL HISTORY: sp rt gamma nail sx 09/03/2021 COMPARISON: October 03, 2021 FINDINGS: RIGHT HIP Two views of the right hip including an AP pelvis were obtained. An IM steven and compression screws are present curing the right femur. There is no acute fracture or dislocation. There is some moderate narrowing of the right hip joint space. The visualized bony structures are well aligned. No soft tissue abnormality is seen. IMPRESSION: No acute bony abnormality. Reviewed, Interpreted and Dictated by Samm Chapin MD Transcribed by Leyla Rasmussen Authenticated by Samm Chapin MD on 11/19/2021 04:18:14 PM [facility]
== END ==
PROVIDERS: PCP Family Medicine; Visit Provider Orthopaedic Surgery
DX: S72.91XA Unspecified fracture of right femur, initial encounter for closed fracture (principal)
CPT/HCPCS: 73502

== ENCOUNTER 2022-02-08 22:58 | Inpatient (IN) | payer MEDICARE, MEDICAID, SELFPAY ==
[2022-02-08 22:59] VITALS: BP 134/76; PULSE 74; RESP 26; TEMP 37.1; O2SAT 92; BMI 19.3
--- NOTE | 2022-02-08 23:03 | XR_ITS ---
PROCEDURE INFORMATION: Exam: XR Chest Exam date and time: 02/08/2022 11:05 PM Age: 71 years old Clinical indication: Dyspnea and shortness of breath TECHNIQUE: Imaging protocol: XR of the chest. Views: 1 view. COMPARISON: CR XR CHEST PORTABLE 09/04/2021 7:43 AM FINDINGS: Lungs: Hyperinflated lungs with chronic interstitial markings and moderate emphysematous changes in the lung apices, similar to prior exams. Calcified pulmonary granuloma in right lower lung, unchanged. No acute airspace consolidation. No appreciable pulmonary edema. Pleural spaces: No pleural effusion. No pneumothorax. Heart/Mediastinum: Cardiomediastinal silhouette is unchanged. Bones/joints: No acute osseous abnormality. Soft tissues: Unremarkable. IMPRESSION: No evidence of acute cardiopulmonary disease.
[2022-02-08 23:08] LABS: ABG Base Excess 11.7 mmol/L (-2.4-2.3); ABG HCO3 37.5 mmhg (22.0-26.0); ABG Oxygen Saturation 84 % (90-100); ABG PH 7.34 mmol/L (7.35-7.45); ABG TCO2 39.7 mmhg (23-27); Lactate Arterial 0.7 mmol/L (0.4-2.0)
--- NOTE | 2022-02-08 23:08 | ECG_ITS ---
APPROVED REPORT Exam: Resting ECG HR:75 bpm ECG Measurements Heart Rate 75 AXES QRSd 99 QRS 77 QT 378 T 67 QTc 407 Conclusion SUPRAVENTRICULAR RHYTHM ABNORMAL RHYTHM ECG UNCONFIRMED REPORT Electronically signed by : Joseph Hartmann MD 02/09/2022 08:58:43
[2022-02-08 23:09] LABS: ABG PCO2 71.4 mmhg (35.0-45.0); Allen's Test Y; Oxygen 4 %; Source Right Radial
[2022-02-08 23:23] LABS: Basophils # 0.1 K/mm3 (0-0.2); Basophils % 0.9 % (0.1-2.0); Eosinophils # 0.1 K/mm3 (0.0-0.4); Eosinophils % 0.9 % (0.1-12.0); Hematocrit 39.8 % (37.0-47.0); Hemoglobin 12.6 g/dL (12.2-16.2); Lymphocytes # 1.1 K/mm3 (0.7-4.5); Lymphocytes % 16.3 % (10-50); Mean Corpuscular HGB Conc 31.6 g/dL (31.8-35.4); Mean Corpuscular Hemoglobin 31.3 pg (27.0-31.2); Monocytes # 0.3 K/mm3 (0.1-1.0); Monocytes % 3.9 % (1.7-9.3); Neutrophils # 5.4 K/mm3 (1.8-7.8); Platelet Count 155 K/mm3 (142-424); Red Blood Count 4.03 M/mm3 (4.20-5.40); Red Cell Distribution Width 15.7 % (11.5-17.5); White Blood Count 6.9 K/mm3 (4.8-10.8)
[2022-02-08 23:27] LABS: Alanine Aminotransferase 24 U/L (12-78); Albumin Level 4.1 g/dl (3.5-5.0); Albumin/Globulin Ratio 1.3 (1.1-1.8); Alkaline Phosphatase 115 U/L (38-126); Aspartate Amino Transferase 52 U/L (14-36); Blood Urea Nitrogen 13 mg/dl (7-17); Chloride 98 mmol/L (98-107); Creatinine Clearance Estimated 37 mL/min (50-200); Estimated Glomerular Filt Rate 98 ml/min (>60); GFR (African American) 119 ML/MIN (>60); Globulin 3.1 g/dL (1.3-3.2); Glucose 130 mg/dl (74-100); Potassium 3.8 mmoL/L (3.5-5.1); Sodium 143 mmol/L (136-145); Total Protein,Serum 7.2 g/dl (6.3-8.2)
[2022-02-08 23:28] LABS: Bilirubin,Total < 0.1 mg/dl (0.2-1.3)
[2022-02-08 23:30] LABS: Lactic Acid 0.9 mmol/L (0.7-2.1)
[2022-02-08 23:33] LABS: Anion Gap 9.8 mEq/L (5-15); Carbon Dioxide 39 mmol/L (22.0-30.0)
[2022-02-08 23:38] LABS: Troponin I 0.13 ng/ml (0.00-0.034)
[2022-02-08 23:39] VITALS: RESP 20; RESP 23
[2022-02-08 23:48] VITALS: BP 99/53; PULSE 79; O2SAT 98
[2022-02-09] VITALS (13 sets, daily range): BP systolic 93–123; BP diastolic 47–79; PULSE 70–90; RESP 1–20; TEMP 36.4–36.8; O2SAT 93–99; BMI 16.9
[2022-02-09 00:01] LABS: Coronavirus 19, PCR Not Detected (NotDetected); Influenza A, PCR Not Detected (NotDetected); Influenza B, PCR Not Detected (NotDetected)
--- NOTE | 2022-02-09 00:03 | PC.NURSE ---
Dr. Bowens paged for ED doctor, ED doctor on phone with Dr. Bowens who is on service
--- NOTE | 2022-02-09 01:14 | HMH.EDGENADL ---
ED Disposition Clinical Impression: Non-ST elevated myocardial infarction (non-STEMI), Acute respiratory failure with hypercapnia Disposition: Admitted As Inpatient Condition on Discharge: Good - Critical Care Critical Care Time: Yes Attestation: On 02/08/22, the high probability of a clinically significant, sudden or life threatening deterioration of the following system(s) required my full and direct attention, intervention and personal management. The time I documented below is in addition to time spent performing reported procedures but includes the following listed in this critical care notation. Total Critical Care Time: 30 Vital system(s) involved:: Respiratory Failure My critical care processes included: Assessment & monitoring of V/S, Initial and Re-exams, Data Review/Interpretation, Coordinating Care, Medication Orders and management, Documentation Medical Decision Making - Medical Records Medical records reviewed: Yes: I reviewed the patient's medical records. - Danilo Inquiry Pt receiving controlled substance: No Vital Signs: 02/08/22 22:59 02/08/22 23:48 02/09/22 00:00 Temperature 98.8 F Temperature Source Oral Pulse Rate 79 81 Pulse Rate [Apical] 74 Respiratory Rate 26 H Blood Pressure 99/53 L 111/79 Blood Pressure [Right Arm] 134/76 Blood Pressure Mean 58 89 Blood Pressure Mean [Right Arm] 95 Blood Pressure Source Blood Pressure Source [Right Arm] Automatic Cuff Blood Pressure Position Blood Pressure Position [Right Arm] Sitting 02 Sat by Pulse Oximetry 92 L 98 99 Oxygen Delivery Method Nasal Cannula Oxygen Flow Rate (LPM) 4 02/09/22 00:30 02/09/22 00:47 02/09/22 01:00 Temperature Temperature Source Pulse Rate 75 71 81 Pulse Rate [Apical] Respiratory Rate Blood Pressure 98/65 L 117/71 96/67 L Blood Pressure [Right Arm] Blood Pressure Mean 76 86 76 Blood Pressure Mean [Right Arm] Blood Pressure Source Blood Pressure Source [Right Arm] Blood Pressure Position Blood Pressure Position [Right Arm] 02 Sat by Pulse Oximetry 99 99 99 Oxygen Delivery Method Oxygen Flow Rate (LPM) 02/09/22 01:26 Temperature 98.1 F Temperature Source Oral Pulse Rate 70 Pulse Rate [Apical] Respiratory Rate 18 Blood Pressure 96/47 L Blood Pressure [Right Arm] Blood Pressure Mean Blood Pressure Mean [Right Arm] Blood Pressure Source Automatic Cuff Blood Pressure Source [Right Arm] Blood Pressure Position Sitting Blood Pressure Position [Right Arm] 02 Sat by Pulse Oximetry Oxygen Delivery Method BiPAP Oxygen Flow Rate (LPM) 40 - Lab Data Lab results reviewed: Yes: I reviewed the patient's lab results. Lab Results 02/08/22 23:03: Specimen Source Right radial, O2 % 4, ABG pH 7.34 L, ABG pCO2 71.4 H, ABG pO2 49.0 L, ABG HCO3 37.5 H, ABG Total CO2 39.7 H, ABG O2 Saturation 84 L*, ABG Base Excess 11.7 H, Oswaldo Test Y, ABG Lactate 0.7 02/08/22 23:08: WBC 6.9, RBC 4.03 L, Hgb 12.6, Hct 39.8, MCV 99.0, MCH 31.3 H, MCHC 31.6 L, RDW 15.7, Plt Count 155, MPV 10.0, Neut % (Auto) 78.0, Lymph % (Auto) 16.3, [place] % (Auto) 3.9, Eos % (Auto) 0.9, Baso % (Auto) 0.9, Neut # (Auto) 5.4, Lymph # (Auto) 1.1, [place] # (Auto) 0.3, Eos # (Auto) 0.1, Baso # (Auto) 0.1 02/08/22 23:08: Sodium 143, Potassium 3.8, Chloride 98, Carbon Dioxide 39 H, Anion Gap 9.8, BUN 13, Creatinine 0.60, Estimated Creat Clear 37, Estimated GFR 98, Est GFR ( Amer) 119, Glucose 130 H, Calcium 10.0, Total Bilirubin < 0.1 L, AST 52 H, ALT 24, Alkaline Phosphatase 115, Troponin I 0.13 H, Total Protein 7.2 D, Albumin 4.1, Globulin 3.1, Albumin/Globulin Ratio 1.3 02/08/22 23:08: Lactate 0.9 02/08/22 23:55: SARS-CoV-2 (PCR) Not detected, Influenza A Untype (PCR) Not detected, Influenza Type B (PCR) Not detected Result diagrams: 02/08/22 23:08 02/08/22 23:08 Orders (Tests/Meds): ED MEDICATIONS Generic Name Dose Route Start Last Admin Trade Name Freq PRN Reason Stop Dose Ad
--- NOTE | 2022-02-09 01:35 | PC.NURSE ---
pt arrived to floor via stretcher at this time
[2022-02-09 02:53] LABS: Troponin I 0.36 ng/ml (0.00-0.034)
--- NOTE | 2022-02-09 05:05 | PC.NURSE ---
Pt a + o x4. Pt has worn bipap for majority of night. Pt has not voiced any complaints to staff. Call light within reach.
[2022-02-09 05:25] LABS: Basophils % 0.4 % (0.1-2.0); Eosinophils % 0.3 % (0.1-12.0); Hematocrit 36.6 % (37.0-47.0); Hemoglobin 11.6 g/dL (12.2-16.2); Lymphocytes # 0.5 K/mm3 (0.7-4.5); Lymphocytes % 8.8 % (10-50); Mean Corpuscular HGB Conc 31.8 g/dL (31.8-35.4); Mean Corpuscular Hemoglobin 31.3 pg (27.0-31.2); Mean Corpuscular Volume 98.6 fl (81-99); Mean Platelet Volume 9.6 fl (7.4-10.4); Monocytes # 0.1 K/mm3 (0.1-1.0); Monocytes % 1.3 % (1.7-9.3); Neutrophils # 4.7 K/mm3 (1.8-7.8); Neutrophils % 89.1 % (37.0-80.0); Platelet Count 145 K/mm3 (142-424); Red Blood Count 3.72 M/mm3 (4.20-5.40); Red Cell Distribution Width 15.9 % (11.5-17.5); White Blood Count 5.2 K/mm3 (4.8-10.8)
[2022-02-09 05:26] LABS: MANUAL DIFFERENTIAL MANUAL DIFFERENTIAL (MANUAL DIFF)
[2022-02-09 05:31] LABS: Chloride 100 mmol/L (98-107)
[2022-02-09 05:32] LABS: Potassium 4.3 mmoL/L (3.5-5.1); Sodium 139 mmol/L (136-145)
[2022-02-09 05:34] LABS: Blood Urea Nitrogen 15 mg/dl (7-17); Creatinine Clearance Estimated 32 mL/min (50-200); Estimated Glomerular Filt Rate 121 ml/min (>60); GFR (African American) 146 ML/MIN (>60)
[2022-02-09 05:35] LABS: Anion Gap 3.3 mEq/L (5-15); Calcium 9.8 mg/dl (8.4-10.2); Carbon Dioxide 40 mmol/L (22.0-30.0)
[2022-02-09 05:45] LABS: Lymphocytes % 6 % (10-50); Neutrophils % 87 % (42-76); Total Cells Counted 100
[2022-02-09 05:46] LABS: Hypochromasia 1+; Macrocytosis 1+; Platelet Estimate Normal
[2022-02-09 05:54] LABS: Glucose 167 mg/dl (74-100); Troponin I 0.39 ng/ml (0.00-0.034)
--- NOTE | 2022-02-09 08:09 | P.CONPHA_ITS ---
[facility] Pharmacy VTE Monitoring - Patient Demographics Admission date: 02/09/22 Report Date: 02/09/22 Time: 08:09 Allergies/Adverse Reactions: Patient Allergies NSAIDS (Non-Steroidal Anti-Inflamma Allergy (Mild, Verified 11/19/21 15:13) Rash Height: 1.55 m Weight: 40.823 kg Patient Problems: Current Active Problems Non-ST elevated myocardial infarction (non-STEMI) (Acute) Acute respiratory failure with hypercapnia (Acute) - VTE Risk Labs: VTE Related Lab Results Hgb 11.6 g/dL (12.2-16.2) L 02/09/22 05:15 Hct 36.6 % (37.0-47.0) L 02/09/22 05:15 Plt Count 145 K/mm3 (142-424) 02/09/22 05:15 BUN 15 mg/dl (7-17) 02/09/22 05:15 Creatinine 0.50 mg/dl (0.52-1.04) L 02/09/22 05:15 Estimated Creat Clear 32 mL/min (50-200) 02/09/22 05:15 - Prophylaxis VTE Prophylaxis Ordered?: Yes Types of VTE Prophylaxis: TEDS Knee High Location of Applied Device: Bilateral Lower Extremeties
--- NOTE | 2022-02-09 08:18 | HMH.PHAINT ---
MEDICATION RECONCILIATION COMPLETED ON PATIENT USING EXTERNAL FILL HISTORY FROM PHARMACY AND LIST FROM PREVIOUS ADMISSION. -NEDRA MAGALLOND
--- NOTE | 2022-02-09 08:47 | HMH.HP ---
*Admission Date: 02/09/22 *Chief complaint: Shortness of air/respiratory failure/fatigue *History of present illness: 71-year-old with significant emphysema, who requires 4 L of oxygen at home, who has been seeing Dr. Bernard's group for her ongoing pulmonary care. She worsened over the past 24 to 48 hours and came to the emergency department where she was found to be in hypercapnic respiratory failure and was placed on BiPAP overnight along with aggressive steroid, antibiotic and pulmonary toilet therapy. This morning she states that she feels better. She continues to be tired and exhibit some shortness of air. [facility] History I have reviewed the patient's past medical history: Yes Medical History: Reports:: Arrhythmia, Cancer, Chronic Obstructive Pulmonary Disease (COPD), Deep Vein Thrombosis, Lung Disease, Kidney Stones, Palpitations Denies:: Diabetes Mellitus Type 1, Diabetes Mellitus Type 2, Internal Pacemaker, MRSA, Seizures *Have you ever received a pneumonia vaccine?: Yes *Have you received a flu vaccine this season?: Yes Other Medical History: Reports: Anemia, Arthritis Laterality Cases: Right: Arthroscopy Hip Other Surgeries: Yes: No Previous Surgery, Colonoscopy, Hysterectomy-Partial, Skin Cancer Excision (L WRIST), Other. No: Pacemaker Amputation: No Fractures: No - *Social History Smoking Status: Current every day smoker Tobacco Type: cigarettes # Packs/Day (cigarettes): 1 #Yrs smoked (if former smoker): 50 Alcohol Intake: former Alcohol Intake Frequency:: holidays/special occasions only Substance Use Type: denies use *Occupational Status:: disabled Housing: house Household Members: spouse *Travel in the last 8 weeks: None Family Hx:: Cancer, Diabetes, Stroke, Mental illness Review of Systems - Review of Systems Review of systems:: pertinent systems reviewed and negative unless documented below Meds Home Medications Medication Instructions Recorded Confirmed Type escitalopram oxalate 10 mg tablet 10 mg PO HS 10/08/17 02/09/22 History zolpidem 5 mg tablet 5 mg PO HSP PRN 10/08/17 02/09/22 History Dicyclomine HCl [Bentyl 10mg 20 mg PO QIDP PRN 10/14/17 02/09/22 History capsule] Albuterol Sulfate [Albuterol 2 puff IH Q4HP PRN 05/02/21 02/09/22 History Sulfate Hfa] Fluticasone Propionate [Flonase 1 spr NS DAILY 05/02/21 02/09/22 History 50mcg nasal spray 16gm] Budesonide/Glycopyr/Formoterol 2 puff IH BID 09/03/21 02/09/22 History [Breztri Aerosphere Inhaler] Hydrocod/Acet 5/325 mg [[place] 1 tab PO BIDP PRN 02/09/22 02/09/22 History 5/325mg tablet] Tizanidine HCl [Zanaflex 4mg 4 mg PO TIDP PRN 02/09/22 02/09/22 History tab] Allergies Allergy/AdvReac Type Severity Reaction Status Date / Time NSAIDS (Non-Steroidal Allergy Mild Rash Verified 11/19/21 15:13 Anti-Inflamma Exam Vital signs and Labs for Last 24 Hours: Temp Pulse Resp BP Pulse Ox 97.5 F L 78 20 123/70 93 L 02/09/22 04:00 02/09/22 04:00 02/09/22 04:00 02/09/22 04:00 02/09/22 04:00 Laboratory Results - last 24 hr 02/08/22 23:03: Specimen Source Right radial, O2 % 4, ABG pH 7.34 L, ABG pCO2 71.4 H, ABG pO2 49.0 L, ABG HCO3 37.5 H, ABG Total CO2 39.7 H, ABG O2 Saturation 84 L*, ABG Base Excess 11.7 H, Oswaldo Test Y, ABG Lactate 0.7 02/08/22 23:08: WBC 6.9, RBC 4.03 L, Hgb 12.6, Hct 39.8, MCV 99.0, MCH 31.3 H, MCHC 31.6 L, RDW 15.7, Plt Count 155, MPV 10.0, Neut % (Auto) 78.0, Lymph % (Auto) 16.3, [place] % (Auto) 3.9, Eos % (Auto) 0.9, Baso % (Auto) 0.9, Neut # (Auto) 5.4, Lymph # (Auto) 1.1, [place] # (Auto) 0.3, Eos # (Auto) 0.1, Baso # (Auto) 0.1 02/08/22 23:08: Sodium 143, Potassium 3.8, Chloride 98, Carbon Dioxide 39 H, Anion Gap 9.8, BUN 13, Creatinine 0.60, Estimated Creat Clear 37, Estimated GFR 98, Est GFR ( Amer) 119, Glucose 130 H, Calcium 10.0, Total Bilirubin < 0.1 L, AST 52 H, ALT 24, Alkaline Phosphatase 115, Troponin I 0.13 H, Total Protein 7.2 D, Albumin 4.1, Globulin 3.1, Albumin/Globuli
[2022-02-10] VITALS (11 sets, daily range): BP systolic 95–136; BP diastolic 52–80; PULSE 74–101; RESP 17–28; TEMP 36.7–37.4; O2SAT 88–100; BMI 16.9; BMI 16.6
[2022-02-10 06:36] LABS: Basophils % 0.3 % (0.1-2.0); Eosinophils % 0.1 % (0.1-12.0); Hematocrit 33.3 % (37.0-47.0); Hemoglobin 10.7 g/dL (12.2-16.2); Lymphocytes # 1.1 K/mm3 (0.7-4.5); Lymphocytes % 14.4 % (10-50); Mean Corpuscular HGB Conc 32.1 g/dL (31.8-35.4); Mean Corpuscular Hemoglobin 31.5 pg (27.0-31.2); Mean Corpuscular Volume 98.3 fl (81-99); Mean Platelet Volume 10.2 fl (7.4-10.4); Monocytes # 0.3 K/mm3 (0.1-1.0); Monocytes % 4.2 % (1.7-9.3); Neutrophils # 6.2 K/mm3 (1.8-7.8); Neutrophils % 81.1 % (37.0-80.0); Platelet Count 148 K/mm3 (142-424); Red Blood Count 3.39 M/mm3 (4.20-5.40); Red Cell Distribution Width 16.1 % (11.5-17.5); White Blood Count 7.6 K/mm3 (4.8-10.8)
[2022-02-10 06:44] LABS: Blood Urea Nitrogen 14 mg/dl (7-17); Calcium 9.5 mg/dl (8.4-10.2); Chloride 100 mmol/L (98-107); Creatinine Clearance Estimated 32 mL/min (50-200); Estimated Glomerular Filt Rate 98 ml/min (>60); GFR (African American) 119 ML/MIN (>60); Glucose 114 mg/dl (74-100); Potassium 3.7 mmoL/L (3.5-5.1); Sodium 140 mmol/L (136-145)
[2022-02-10 06:51] LABS: Anion Gap 5.7 mEq/L (5-15); Carbon Dioxide 38 mmol/L (22.0-30.0)
--- NOTE | 2022-02-10 09:02 | P.PN_ITS ---
Internal Medicine - PN: Subj *Date: 02/10/22 *Time: 09:02 Interval history: Patient is alert, pleasant. Oriented x3. Continues to complain of some shortness of air. We once again discussed her wish for hospice care and she does indicate that this is her wish. She is very concerned about going home with support, treatment for shortness of air and palliative measures. Exam Vital signs and Labs for Last 24 Hours: Temp Pulse Resp BP Pulse Ox 98.1 F 80 18 120/69 100 02/10/22 08:00 02/10/22 08:44 02/10/22 08:00 02/10/22 08:00 02/10/22 08:00 Laboratory Results - last 24 hr 02/10/22 05:22: WBC 7.6 D, RBC 3.39 L, Hgb 10.7 L, Hct 33.3 L, MCV 98.3, MCH 31.5 H, MCHC 32.1, RDW 16.1, Plt Count 148, MPV 10.2, Neut % (Auto) 81.1 H, Lymph % (Auto) 14.4, [place] % (Auto) 4.2, Eos % (Auto) 0.1, Baso % (Auto) 0.3, Neut # (Auto) 6.2, Lymph # (Auto) 1.1, [place] # (Auto) 0.3, Eos # (Auto) 0.0, Baso # (Auto) 0.0 02/10/22 05:22: Sodium 140, Potassium 3.7, Chloride 100, Carbon Dioxide 38 H, Anion Gap 5.7, BUN 14, Creatinine 0.60, Estimated Creat Clear 32, Estimated GFR 98, Est GFR ( Amer) 119, Glucose 114 H, Calcium 9.5 I & O for Last 24 hours: Intake & Output 02/07/22 02/08/22 02/09/22 02/10/22 11:59 11:59 11:59 11:59 Intake Total 240 / 240 420 / 420 Balance 240 / 240 420 / 420 Weight 90 lb 89 lb 15.989 oz Narrative: Frail, alert, pleasant. Poor air entry. Heart rate regular. Abdomen soft. No clubbing or edema. Neurologically intact but globally weak. Assessment and Plan (1) Acute respiratory failure with hypercapnia Status: Acute Category: Medical Code(s): J96.02 - Acute respiratory failure with hypercapnia (2) Non-ST elevated myocardial infarction (non-STEMI) Status: Acute Category: Medical Code(s): I21.4 - Non-ST elevation (NSTEMI) myocardial infarction (3) Acute exacerbation of chronic obstructive airways disease Status: Acute Category: Medical Code(s): J44.1 - Chronic obstructive pulmonary disease with (acute) exacerbation (4) COPD, severe Status: Chronic Category: Medical Code(s): J44.9 - Chronic obstructive pulmonary disease, unspecified - Assessment and plan all Dx Assessment and Plan for all problems:: Significant respiratory failure superimposed on severe COPD. Certainly appropriate for hospice care. We will get them involved today and have [facility] assess whether or not she is a good candidate for their care center versus home possibly tomorrow with hospice support.
--- NOTE | 2022-02-10 09:47 | SW/DCPLANNER ---
Addendum entered by Renetta Davis 02/12/22 10:06: This patient will discharge home with [facility] today. Johann her/ [facility] has been made aware of discharge plan and will have all DME set up in patient's home. Addendum entered by Renetta Davis 02/11/22 10:04: Patient and stated this AM during rounds with MD that they are agreeable to discharge home with [facility] services. I have called and updated Johann her/ Jen and she stated that she will speak with and have all equipment set up at home for anticipated discharge tomorrow morning. I will also contact patient's Campus Supervisor (Janene) [phone] per 's request. Addendum entered by Renetta Davis 02/10/22 15:56: Nara Clay came and spoke with patient and her this afternoon. Patient and are unsure if discharging home or placement is the best option. Patient and family has asked for time to discuss options this evening and have a decision in the AM during MD rounds. I will round with MD in AM and further discuss discharge planning. Nara Clay stated that no paperwork was signed today during her visit. Addendum entered by Renetta Davis 02/10/22 14:47: [facility] is currently in room speaking with this patient. Addendum entered by Renetta Athol 02/10/22 10:19: Mary her/ [facility] stated Johann will come evaluate this patient at 2PM today. Original Note: I have a received a referral regarding Hospice Care for this patient. Patient does have end stage COPD and has voiced that she is interested in Hospice services. Patient information has been faxed to [facility]: I will follow up with Hospice once patient information is reviewed. Patient will be ready for discharge soon.
--- NOTE | 2022-02-10 17:15 | PC.NURSE ---
PT IS ALERT AND ORIENTED X4. HOSPICE CAME TO SEE PT TODAY. PT HAS C/O SHORTNESS OR BREATH. BILATERAL CRACKLES AND WHEEZES HEARD THROUGHOUT LUNG AIKEN.
[2022-02-11] VITALS (14 sets, daily range): BP systolic 109–127; BP diastolic 63–71; PULSE 70–88; RESP 16–21; TEMP 36.4–37.2; O2SAT 89–94; BMI 17.4
--- NOTE | 2022-02-11 04:00 | PC.NURSE ---
0400 PT SLEPT WELL AFTER AMBIEN, PT COMPLAIN OF PAIN WHEN SHE BREATHS AND MEDICATED X2, PT REMAINS ON 02 AT 4L WITH SATS 92%; LUNGS DIMINISHED WITH CRACKLES, PT WITH NON PRODUCTIVE COUGH, VSS, NO OTHER ISSUES NOTED.
--- NOTE | 2022-02-11 13:55 | HMH.ACPN2 ---
Internal Medicine - PN: Subj *Date: 02/11/22 *Time: 13:55 Interval history: Continues to be weak. No fever overnight. Tolerating some p.o. intake. Further discussion this morning with patient and about hospice care. They would like to go home with hospice but are unsure about the logistics of getting equipment. Case management assisting. Still feels short of breath but on stable oxygen Exam Vital signs and Labs for Last 24 Hours: Temp Pulse Resp BP Pulse Ox 99.0 F 82 21 123/68 91 L 02/11/22 12:00 02/11/22 12:00 02/11/22 12:00 02/11/22 12:00 02/11/22 12:00 I & O for Last 24 hours: Intake & Output 02/08/22 02/09/22 02/10/22 02/11/22 23:59 23:59 23:59 23:59 Intake Total 540 / 540 2324 / 2324 1265 / 1265 Output Total 400 / 400 Balance 540 / 540 1924 / 1924 1265 / 1265 Weight 46.266 kg 40.823 kg 40 kg 42 kg Microbiology Reports for the Last 24 Hours: Microbiology 02/08/22 23:08 Blood Blood Culture - Preliminary NO GROWTH AFTER 48 HOURS 02/08/22 23:08 Blood Blood Culture - Preliminary NO GROWTH AFTER 48 HOURS Narrative: - Constitutional minimal distress, thin, chronically ill appearing - *Routine HEENT Exam Head: Present: normocephalic Eye: Present: EOMI, PERRL ENT: Present: mucous membranes moist - *Routine Neck Exam Present: supple. Absent: lymphadenopathy - *Routine Respiratory Exam Present: prolonged expiratory phase, rales, wheezes, distant breath sounds - *Routine Cardiovascular Exam Present: RRR - *Routine Abdominal Exam Present: soft, normoactive bowel sounds. Absent: tenderness - *Routine Extremities Exam Absent: cyanosis, clubbing, edema - *Routine Skin Exam Present: warm. Absent: rash - *Routine Neurological Exam Present: alert, oriented X3 Assessment and Plan (1) Acute respiratory failure with hypercapnia Status: Acute Category: Medical Code(s): J96.02 - Acute respiratory failure with hypercapnia (2) Non-ST elevated myocardial infarction (non-STEMI) Status: Acute Category: Medical Code(s): I21.4 - Non-ST elevation (NSTEMI) myocardial infarction (3) Acute exacerbation of chronic obstructive airways disease Status: Acute Category: Medical Code(s): J44.1 - Chronic obstructive pulmonary disease with (acute) exacerbation (4) COPD, severe Status: Chronic Category: Medical Code(s): J44.9 - Chronic obstructive pulmonary disease, unspecified - Assessment and plan all Dx Assessment and Plan for all problems:: Patient with significant respiratory failure. Stable at this time. Discussed hospice, appropriate given her end-stage COPD. Plan to discharge to home with hospice tomorrow. Case management assisting with coordinating logistics. Regular diet DNR
--- NOTE | 2022-02-11 18:47 | PC.NURSE ---
PT IS ALERT AND ORIENTED X4. SHE REMAINS ON 4L NASAL CANNULA AND IS TOLERATING WELL. SHE HAS HAD NO C/O N/V/D. SHE HAS EXERTIONAL SOB.
--- NOTE | 2022-02-11 19:00 | PC.NURSE ---
Dr. Bowens stated that tele could be removed.
[2022-02-12] VITALS: O2SAT 93
[2022-02-12 03:41] VITALS: BP 122/71; PULSE 75; RESP 16; TEMP 36.5; O2SAT 96
[2022-02-12 05:07] VITALS: BMI 18.1
--- NOTE | 2022-02-12 05:08 | PC.NURSE ---
No acute changes. Pt toleraing 4 L nc well with sats >90%. Pt has c/o pain 1x t/o shift, PRN pain medication administered per MAR, pt states favorable results. Pt has also c/o some discomfort when trying to swallow food/liquid tonight. No other complaints voiced to staff. Call light within reach.
[2022-02-12 06:30] VITALS: PULSE 71; PULSE 72; O2SAT 97
[2022-02-12 08:00] VITALS: BP 130/68; PULSE 73; RESP 20; TEMP 37.1; O2SAT 97
--- NOTE | 2022-02-12 08:13 | HMH.ACPN ---
Internal Medicine - PN: Subj *Date: 02/12/22 *Time: 08:13 Exam Vital signs and Labs for Last 24 Hours: Temp Pulse Resp BP Pulse Ox 97.7 F 71 16 122/71 97 02/12/22 03:41 02/12/22 06:30 02/12/22 03:41 02/12/22 03:41 02/12/22 06:30 I & O for Last 24 hours: Intake & Output 02/09/22 02/10/22 02/11/22 02/12/22 23:59 23:59 23:59 23:59 Intake Total 540 / 540 2324 / 2324 1325 / 1325 1345 / 1345 Output Total 400 / 400 300 / 300 Balance 540 / 540 1924 / 1924 1325 / 1025 1045 / 1045 Weight 40.823 kg 40 kg 42 kg 43.56 kg Assessment and Plan (1) Acute respiratory failure with hypercapnia Status: Acute Category: Medical Code(s): J96.02 - Acute respiratory failure with hypercapnia (2) Non-ST elevated myocardial infarction (non-STEMI) Status: Acute Category: Medical Code(s): I21.4 - Non-ST elevation (NSTEMI) myocardial infarction (3) Acute exacerbation of chronic obstructive airways disease Status: Acute Category: Medical Code(s): J44.1 - Chronic obstructive pulmonary disease with (acute) exacerbation (4) COPD, severe Status: Chronic Category: Medical Code(s): J44.9 - Chronic obstructive pulmonary disease, unspecified The patient's infection will respond to the chosen ABx?: Yes Is the patient receiving the right drug, dose, and route?: Yes Could a more targeted ABx be ordered?: No
--- NOTE | 2022-02-12 08:32 | HMH.DCSUM ---
General - General Admission date:: 02/09/22 Discharge date: 02/12/22 HPI HPI: 71-year-old with significant emphysema, who requires 4 L of oxygen at home, who has been seeing Dr. Bernard's group for her ongoing pulmonary care. She worsened over the past 24 to 48 hours and came to the emergency department where she was found to be in hypercapnic respiratory failure and was placed on BiPAP overnight along with aggressive steroid, antibiotic and pulmonary toilet therapy. This morning she states that she feels better. She continues to be tired and exhibit some shortness of air. Hospital Course Hospital Course: Patient was admitted for COPD exacerbation. Review of her overall history and decline over the past year as well as her chest x-ray and labs and physical exam revealed that she has end-stage COPD. The patient brought up going home with hospice and this was certainly a reasonable decision. After a couple of days of consultation she and her agreed for hospice placement and she will be discharged home today with [facility] out of [place], [place]. She will be sent home with as needed medications for Ativan and Roxanol. I will send her home with antibiotics and steroid to finish up treatment for COPD exacerbation. Follow-up will be per the hospice organization. Patient maintains a DNR status and we will continue to respect this as an outpatient. Objective Vital signs: Temp Pulse Resp BP Pulse Ox 97.7 F 71 16 122/71 97 02/12/22 03:41 02/12/22 06:30 02/12/22 03:41 02/12/22 03:41 02/12/22 06:30 mild distress, thin, chronically ill appearing - *Routine HEENT Exam Head: Present: normocephalic Eye: Present: EOMI, PERRL ENT: Present: mucous membranes moist - *Routine Neck Exam Present: supple - *Routine Respiratory Exam Present: accessory muscle use, wheezes - *Routine Cardiovascular Exam Present: RRR - *Routine Abdominal Exam Present: soft, normoactive bowel sounds. Absent: tenderness - *Routine Extremities Exam Absent: cyanosis, clubbing, edema - *Routine Skin Exam Present: warm. Absent: rash - Detailed Eye Exam Eyelids: Bilateral normal inspection Results Labs on day of discharge: Preliminary micro results at discharge 02/08/22 23:08 Blood Culture - Preliminary Blood NO GROWTH AFTER 48 HOURS 02/08/22 23:08 Blood Culture - Preliminary Blood NO GROWTH AFTER 48 HOURS DS: Diagnosis - Discharge Diagnosis (1) Acute respiratory failure with hypercapnia Status: Acute (2) Non-ST elevated myocardial infarction (non-STEMI) Status: Ruled-out (3) Acute exacerbation of chronic obstructive airways disease Status: Acute (4) COPD, severe Status: Chronic Discharge Plan - Patient Discharge Instructions ACTIVITY: Continue current activity DIET: continue same diet Patient Instructions: Heart Attack, Chronic Obstructive Pulmonary Disease, DI for Respiratory Failure, How to Use a Bilevel Positive Airway Pressure (BiPAP) Device - Follow up Plan Disposition: Hospice - Home Condition at discharge:: Stable Home Medications: Home Medications Medication Instructions Recorded Confirmed Type escitalopram oxalate 10 mg tablet 10 mg PO HS 10/08/17 02/09/22 History zolpidem 5 mg tablet 5 mg PO HSP PRN 10/08/17 02/09/22 History Dicyclomine HCl [Bentyl 10mg 20 mg PO QIDP PRN 10/14/17 02/09/22 History capsule] Albuterol Sulfate [Albuterol 2 puff IH Q4HP PRN 05/02/21 02/09/22 History Sulfate Hfa] Fluticasone Propionate [Flonase 1 spr NS DAILY 05/02/21 02/09/22 History 50mcg nasal spray 16gm] Budesonide/Glycopyr/Formoterol 2 puff IH BID 09/03/21 02/09/22 History [Breztri Aerosphere Inhaler] Hydrocod/Acet 5/325 mg [Angela 1 tab PO BIDP PRN 02/09/22 02/09/22 History 5/325mg tablet] Tizanidine HCl [Zanaflex 4mg 4 mg PO TIDP PRN 02/09/22 02/09/22 History tab] LORazepam [Ativan 0.5mg 0.5 mg PO Q4HP PRN #60 ta
[2022-02-12 12:00] VITALS: BP 139/77; PULSE 70; RESP 18; TEMP 36.9; O2SAT 92
--- NOTE | 2022-02-12 12:48 | PC.NURSE ---
Have called EMS @ 1102, stated they has 2 buggies out and would let us know as soon as one was available.
[2022-02-12 13:08] VITALS: PULSE 81; PULSE 82; O2SAT 92
--- NOTE | 2022-02-13 13:56 | CARE MANAGER ---
Contacted patient who states Hospice had all her equipment and meds set up yesterday when she got home. She denies any concerns or cquestions.
== END 2022-02-12 15:20 | disposition hospice, home (50) | DRG 189 ==
LOC: ER 23:13 → 2ND 02-09 01:26
PROVIDERS: Internal Medicine Adolescent Medicine; Admitting Provider Internal Medicine Adolescent Medicine; Emergency Provider Student in an Organized Health Care Education/Training Program; PCP Nurse Practitioner Family; Visit Provider Internal Medicine Adolescent Medicine
DX: J96.02 Acute respiratory failure with hypercapnia (principal); I21.4 Non-ST elevation (NSTEMI) myocardial infarction; F17.210 Nicotine dependence, cigarettes, uncomplicated; Z51.5 Encounter for palliative care; J43.9 Emphysema, unspecified; Z85.9 Personal history of malignant neoplasm, unspecified; M19.90 Unspecified osteoarthritis, unspecified site; Z86.718 Personal history of other venous thrombosis and embolism
CPT/HCPCS: 36415; 71045; 80048; 80053; 82803; 83605; 84484; 85007; 85025; 87040; 93005; 94640; 94660; 94761; 99285; C9803; J2543; U0003; U0005